=== PATIENT | male | born 1965 | race Caucasian/White ===

== ENCOUNTER → 2020-05-04 09:46 | Outpatient (CLI) | payer OTHER, SELFPAY ==
[2020-05-04] MEDS: COVID-19 VACC #1, MRNA(MOD) 100 MCG/0.5 ML VIAL IM (09:55)
== END ==
PROVIDERS: PCP Family Medicine; Visit Provider Internal Medicine
DX: Z23 Encounter for immunization (principal)
CPT/HCPCS: 0011A; 91301

== ENCOUNTER → 2020-06-22 09:41 | Outpatient (CLI) | payer OTHER, SELFPAY ==
[2020-06-22] MEDS: COVID-19 VACC #2, MRNA(MOD) 100 MCG/0.5 ML VIAL IM (09:48)
== END ==
PROVIDERS: PCP Family Medicine; Visit Provider Internal Medicine
DX: Z23 Encounter for immunization (principal)
CPT/HCPCS: 0012A; 91301

== ENCOUNTER 2020-09-13 19:03 | Emergency (ER) | payer OTHER, SELFPAY ==
[2020-09-13 19:16] VITALS: BP 128/82; PULSE 66; RESP 18; TEMP 36.6; O2SAT 99; BMI 27.4
--- NOTE | 2020-09-13 19:21 | DI.CT.S_ITS ---
PROCEDURE: CT HEAD/BRAIN WO CON INDICATIONS: head injury TECHNIQUE: Noncontrast 4.5 mm thick angled axial sections acquired from the foramen magnum to the vertex, with coronal and sagittal reformats. For radiation dose reduction, the following was used: automated exposure control, adjustment of mA and/or kV according to patient size. COMPARISON: [facility], CT, HEAD WITHOUT CONTRAST, 12/02/2016, 16:55. FINDINGS: Image quality: Excellent. CSF spaces: Basal cisterns are patent. No extra-axial fluid collections. Ventricles are normal in size and shape. Brain: Encephalomalacia in the left frontal lobe is unchanged compared to the prior CT in 2017. No midline shift. No intracranial masses or hemorrhage. Giles-white matter interface is normal. Skull and face: A left frontal craniotomy defect is present. Calvarium and visualized facial bones are intact, without suspicious lesions. Sinuses: Visualized sinuses and mastoids are clear. IMPRESSION: 1. No acute intracranial abnormality. 2. Postoperative changes of the left frontal bone with underlying encephalomalacia. Dictated by: Corky Fulton M.D. on 09/13/2020 at 20:20 Approved by: Corky Fulton M.D. on 09/13/2020 at 20:24
--- NOTE | 2020-09-13 23:01 | ED.HEATRA ---
HPI - Head Injury General Chief complaint: Head Injury Stated complaint: HEAD INJURY, ACTING FUNNY PER SPOUSE Time Seen by Provider: 09/13/20 23:00 Source: patient Mode of arrival: Wheelchair Limitations: no limitations History of Present Illness HPI Narrative: Patient sustained head injury 10:00 a.m. this morning when on loading a car. A hydraulic item, flat in shape, fell down and hit the top of his head. No skin injury. No loss of consciousness. Vomited twice today. He states felt very woozy. Not repeating questions. Denies any other injuries. Previous brain surgery as a child. Not on blood thinners. No numbness tingling or weakness. No altered mental status at this time. Injury occurred over 12 hours ago. Related Data Home Medications Medication Instructions Recorded Confirmed hydrochlorothiazide 25 mg tablet 25 mg PO DAILY 09/04/20 09/06/20 lisinopril 10 mg tablet 10 mg PO DAILY 09/04/20 09/06/20 metoprolol succinate 25 mg 25 mg PO DAILY 09/04/20 09/06/20 tablet,extended release 24 hr oxycodone 10 mg tablet 10 mg PO .Q4-6 HRS tab 09/04/20 09/06/20 Previous Rx's Medication Instructions Recorded tamsulosin 0.4 mg capsule (Flomax) 0.4 mg PO QDAY #60 cap 05/15/16 metformin 500 mg tablet 500 mg PO BID #60 tab 08/18/20 ondansetron 4 mg disintegrating 4 mg PO Q8H PRN #10 tab 09/13/20 tablet Allergies Allergy/AdvReac Type Severity Reaction Status Date / Time No Known Drug Allergies Allergy Verified 09/13/20 19:21 Review of Systems Review of Systems Narrative: GENERAL: Denies chills, fatigue, malaise, fever, sweats. HEENT: Denies sinus pain, ear pain, sore throat RESPIRATORY: Denies dyspnea, cough CARDIOVASCULAR: Denies chest pain, palpitations GASTROINTESTINAL: Complaint nausea, vomiting, denies abdominal pain : Denies dysuria, frequency, hematuria MUSCULOSKELETAL: Complains muscle or bony pain SKIN: Denies rash, skin lesions NEUROLOGIC: Denies weakness, numbness, not repeating questions, no altered mental status ROS Unobtainable: All systems reviewed & are unremarkable except as noted in HPI and below Patient History Medical History Personal history of urinary calculi Social History Smoking Status: Never smoker Smoking Status: Never smoker alcohol intake frequency: 0-2 drinks per day Substance Use Type: does not use Exam Narrative Exam Narrative: GENERAL: in no distress, not toxic not dyspneic HEAD: Normocephalic. Mild tenderness to the top of the scalp. No skin injury seen. No swelling or bruising. Skin is intact. No crepitus or step-off. EYES: Pupils equal round No scleral icterus. No injection no discharge ENT: Mucous membranes moist. NECK: Trachea midline. No midline tenderness or step-off. CARDIOVASCULAR: Regular rate and rhythm without murmurs RESPIRATORY: Clear to auscultation. Breath sounds equal bilaterally. No wheezes, rales, or rhonchi. GASTROINTESTINAL: Abdomen soft, non-tender EXTREMITIES: No gross deformities. BACK: No flank tenderness. NEURO: AOx4. States self gait no facial droop. No ataxia. 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 Clear speech. SKIN: Warm and dry PSYCH: Not anxious, is cooperative Initial Vital Signs Initial Vital Signs: Vital Signs Temperature 97.9 F 09/13/20 19:16 Pulse Rate 66 09/13/20 19:16 Respiratory Rate 18 09/13/20 19:16 Blood Pressure 128/82 09/13/20 19:16 Pulse Oximetry 99 09/13/20 19:16 Course Course Course Narrative: No new issues during course of stay. Orders Ordered: Discontinued Medications Hydrocodone Bitart/Acetaminophen (Hydrocodone/Acet 5/325 Tablet) 1 tab PO NOW ONE Stop: 09/13/20 23:08 Last Admin: 09/13/20 23:28 Dose: 1 tab Documented by: NICK Ondansetron HCl (Ondansetron 4 Mg Odt) 4 mg SL NOW ONE Stop: 09/13/20 23:08 Last Admin: 09/13/20 23:28 Dose: 4 mg Documented by: NICK Ondansetron HCl (Ondansetron 4 Mg Odt Prepack) 1 bottle MISC SEEINSTR ONE Stop: 09/13/20 23:13 Last Admin: 09/13/20 23:28 Dose: 1 bottle Documented by: NICK Reevaluation(s) Reevaluation #1: Reviewed results with patient. Agrees with treatment plan. is driving. Time: 23:15 Vital Signs Vital signs: Vital Signs - 8 hr 09/13/20 19:16 Temperature 97.9 F Pulse Rate 66 Respiratory Rate 18 Blood Pressure 128/82 Pulse Oximetry 99 MDM - Head Injury Differential Diagnosis Differential diagnosis: Likely concussion without loss of consciousness, closed head injury, postconcussion syndrome and concussion with loss of consciousness Imaging Data CT scan - head: Radiologist's Impression: [address] [id number] Scan ReportSigned Patient: Lui Juan JMR#: [id number]: 1965Acct:[id number]/Sex: 54 / MDate of Service: 09/13/20Loc: EDAccession Number: [id number] Procedure: CT head/brain wo con Ordering Provider: Jared Tejada MD PROCEDURE: CT HEAD/BRAIN WO CON INDICATIONS: head injury TECHNIQUE: Noncontrast 4.5 mm thick angled axial sections acquired from the foramen magnum to the vertex, with coronal and sagittal reformats. For radiation dose reduction, the following was used: automated exposure control, adjustment of mA and/or kV according to patient size. COMPARISON: [facility], CT, HEAD WITHOUT CONTRAST, 12/02/2016, 16:55. FINDINGS: Image quality: Excellent. CSF spaces: Basal cisterns are patent. No extra-axial fluid collections. Ventricles are normal in size and shape. Brain: Encephalomalacia in the left frontal lobe is unchanged compared to the prior CT in 2017. No midline shift. No intracranial masses or hemorrhage. Giles-white matter interface is normal. Skull and face: A left frontal craniotomy defect is present. Calvarium and visualized facial bones are intact, without suspicious lesions. Sinuses: Visualized sinuses and mastoids are clear. IMPRESSION: 1. No acute intracranial abnormality. 2. Postoperative changes of the left frontal bone with underlying encephalomalacia. Dictated by: Corky Fulton M.D. on 09/13/2020 at 20:20 Approved by: Corky Fulton M.D. on 09/13/2020 at 20:24 [facility] Narrative Medical decision making narrative: Appropriate for discharge home. Exam and imaging reassuring. Return precautions reviewed patient. Not toxic at discharge Discharge Plan Departure Patient Disposition: Home Clinical Impression: Concussion Qualifiers: Encounter type: initial encounter Loss of consciousness presence/duration: without LOC Qualified Code(s): S06.0X0A - Concussion without loss of consciousness, initial encounter Contusion of head Qualifiers: Encounter type: initial encounter Contusion of head detail: scalp Qualified Code(s): S00.03XA - Contusion of scalp, initial encounter Instructions: DI for Contusion, DI for Closed Head Injury Activity Restrictions/Additional Instructions: See family doctor in a week for recheck. Return if worse if any questions or concerns. Prescription for nausea has been provided. May continue with ibuprofen or Tylenol for pain. Prescriptions: New ondansetron 4 mg tablet,disintegrating 4 mg PO Q8H PRN (Reason: nausea and vomiting) Qty: 10 RF: 0 No Action tamsulosin [Flomax] 0.4 MG capsule,extended release 24hr 0.4 mg PO QDAY Qty: 60 RF: 9 metformin 500 mg tablet 500 mg PO BID Qty: 60 RF: 0 hydrochlorothiazide 25 mg tablet 25 mg PO DAILY RF: 0 lisinopril 10 mg tablet 10 mg PO DAILY RF: 0 metoprolol succinate 25 mg tablet extended release 24 hr 25 mg PO DAILY RF: 0 oxycodone 10 mg tablet 10 mg PO .Q4-6 HRS RF: 0 Referrals: Cheyenne Cadet PA-C [Primary Care Provider] -
[2020-09-13] MEDS: HYDROCODONE/ACET 5/325 TABLET 1 TAB PO (23:28)
[2020-09-13] MEDS: ONDANSETRON 4 MG ODT PREPACK 1 BOTTLE MISC (23:28)
[2020-09-13] MEDS: ONDANSETRON 4 MG ODT SL (23:28)
[2020-09-13 23:36] VITALS: BP 121/81; PULSE 78; RESP 20; O2SAT 98
== END 2020-09-13 23:37 | disposition home or self-care (01) ==
PROVIDERS: Emergency Provider Emergency Medicine; PCP Physician Assistant
DX: S06.0X0A Concussion without loss of consciousness, initial encounter (principal); S00.03XA Contusion of scalp, initial encounter; R11.10 Vomiting, unspecified; W18.09XA Striking against other object with subsequent fall, initial encounter
CPT/HCPCS: 70450; 99283; 99284

== ENCOUNTER → 2020-09-20 08:03 | Outpatient (CLI) | payer OTHER, SELFPAY ==
[2020-09-20 19:34] LABS: Add Manual Diff / Slide Review NO; Basophils Absolute Auto 100 /uL (0-100); Basophils Percent Auto 0.9 % (0-2); Eosinophils Absolute Auto 200 /uL (0-450); Eosinophils Percent Auto 2.3 % (2-4); Hemoglobin 14.9 g/dL (13.5-17.5); Lymphocytes Absolute Auto 1800 /uL (1100-4500); Lymphocytes Percent Auto 25.2 % (25-40); Mean Corpuscular HGB Conc 32.5 % (30-36); Mean Corpuscular Hemoglobin 28.9 PG (26-34); Mean Corpuscular Volume 89.1 fL (80-100); Monocytes Absolute Auto 600 /uL (0-900); Monocytes Percent Auto 7.8 % (3-14); Neutrophils Absolute Auto 4700 /uL (1500-7000); Neutrophils Percent Auto 63.8 % (50-75); Platelet Count 269 X10^3/uL (150-400); Red Blood Cell Count 5.16 X10^6/uL (4.5-5.9); White Blood Cell Count 7.3 X10^3/uL (4.5-11.0)
[2020-09-20 19:53] LABS: Hemoglobin A1C% w Est Avg Glu 6.7 % (4.0-6.0)
[2020-09-20 20:13] LABS: Alanine Aminotransferase 21 IU/L (<50); Albumin Globulin Ratio 1.5 (1.0-2.8); Alkaline Phosphatase 51 U/L (38-126); Aspartate Aminotransferase 29 IU/L (17-59); BUN Creatinine Ratio 21.8 (6-22); Bilirubin Total 0.8 mg/dL (0.2-1.3); Blood Urea Nitrogen 19 mg/dL (9-20); Calcium 9.9 mg/dL (8.4-10.2); Carbon Dioxide 25 mmol/L (22-32); Chloride 103 mmol/L (98-107); Cholesterol 178 mg/dL (140-199); Estimated Glomerular Filt Rate > 60.0 mL/min (>60); Globulin 2.7 g/dL (1.7-4.1); Glucose 170 mg/dL (70-100); HDL Cholesterol 66 mg/dL (40-60); HEMOLYSIS < 15 (0-50); LDL Cholesterol Calculated 97 mg/dL (<100); Potassium 4.3 mmol/L (3.4-5.1); Sodium 136 mmol/L (137-145); Total Protein 6.7 g/dL (6.3-8.2); Triglycerides 74 mg/dL (35-150)
[2020-09-20 20:36] LABS: Prostate Specific Antigen Scrn 0.472 ng/mL (0.1-4.0); TSH w/ Reflex to FT4 0.72 uIU/mL (0.47-4.68)
== END ==
PROVIDERS: PCP Physician Assistant; Referring Provider Physician Assistant; Visit Provider Physician Assistant
DX: E11.9 Type 2 diabetes mellitus without complications (principal); R03.0 Elevated blood-pressure reading, without diagnosis of hypertension; R73.9 Hyperglycemia, unspecified; Z13.220 Encounter for screening for lipoid disorders; Z87.442 Personal history of urinary calculi; Z87.448 Personal history of other diseases of urinary system; Z12.5 Encounter for screening for malignant neoplasm of prostate
CPT/HCPCS: 80053; 80061; 83036; 84443; 85025; G0103

== ENCOUNTER → 2021-05-21 08:04 | Outpatient (CLI) | payer OTHER, SELFPAY ==
[2021-05-21 19:35] LABS: Add Manual Diff / Slide Review NO; Basophils Absolute Auto 0 /uL (0-100); Basophils Percent Auto 0.6 % (0-2); Eosinophils Absolute Auto 100 /uL (0-450); Eosinophils Percent Auto 2.3 % (2-4); Hematocrit 44.8 % (41-53); Hemoglobin 14.7 g/dL (13.5-17.5); Lymphocytes Absolute Auto 1700 /uL (1100-4500); Mean Corpuscular HGB Conc 32.9 % (30-36); Mean Corpuscular Hemoglobin 29.1 PG (26-34); Mean Corpuscular Volume 88.3 fL (80-100); Monocytes Absolute Auto 400 /uL (0-900); Monocytes Percent Auto 9.2 % (3-14); Neutrophils Absolute Auto 2600 /uL (1500-7000); Neutrophils Percent Auto 52.9 % (50-75); Platelet Count 262 X10^3/uL (150-400); Red Blood Cell Count 5.07 X10^6/uL (4.5-5.9); Red Cell Distribution Width 13.7 % (11.6-14.8); White Blood Cell Count 4.8 X10^3/uL (4.5-11.0)
[2021-05-21 19:58] LABS: Alanine Aminotransferase 24 IU/L (<50); Albumin 4.1 g/dL (3.5-5.0); Albumin Globulin Ratio 1.4 (1.0-2.8); Alkaline Phosphatase 45 U/L (38-126); Aspartate Aminotransferase 27 IU/L (17-59); BUN Creatinine Ratio 20.2 (6-22); Bilirubin Total 1.3 mg/dL (0.2-1.3); Blood Urea Nitrogen 17 mg/dL (9-20); Calcium 8.9 mg/dL (8.4-10.2); Carbon Dioxide 27 mmol/L (22-32); Chloride 104 mmol/L (98-107); Cholesterol 191 mg/dL (140-199); Estimated Glomerular Filt Rate > 60.0 mL/min (>60); Globulin 2.9 g/dL (1.7-4.1); Glucose 166 mg/dL (70-100); HDL Cholesterol 53 mg/dL (40-60); HEMOLYSIS < 15 (0-50); LDL Cholesterol Calculated 113 mg/dL (<100); Sodium 139 mmol/L (137-145); Triglycerides 123 mg/dL (35-150)
[2021-05-21 20:06] LABS: Hemoglobin A1C% w Est Avg Glu 7.1 % (4.0-6.0)
== END ==
PROVIDERS: PCP Physician Assistant; Visit Provider Physician Assistant
DX: Z87.442 Personal history of urinary calculi (principal); Z13.220 Encounter for screening for lipoid disorders; E11.9 Type 2 diabetes mellitus without complications; I10 Essential (primary) hypertension
CPT/HCPCS: 80053; 80061; 83036; 85025

== ENCOUNTER → 2021-06-28 13:40 | Outpatient (CLI) | payer OTHER, SELFPAY ==
[2021-06-28 18:49] LABS: Add Manual Diff / Slide Review NO; Basophils Absolute Auto 100 /uL (0-100); Basophils Percent Auto 0.9 % (0-2); Eosinophils Absolute Auto 200 /uL (0-450); Hemoglobin 14.8 g/dL (13.5-17.5); Lymphocytes Absolute Auto 2000 /uL (1100-4500); Lymphocytes Percent Auto 29.9 % (25-40); Mean Corpuscular HGB Conc 34.3 % (30-36); Mean Corpuscular Hemoglobin 29.5 PG (26-34); Monocytes Absolute Auto 600 /uL (0-900); Monocytes Percent Auto 8.6 % (3-14); Neutrophils Absolute Auto 3800 /uL (1500-7000); Neutrophils Percent Auto 57.6 % (50-75); Platelet Count 306 X10^3/uL (150-400); Red Cell Distribution Width 13.1 % (11.6-14.8); White Blood Cell Count 6.7 X10^3/uL (4.5-11.0)
[2021-06-28 18:52] LABS: D Dimer < 200 ng/mL (<230)
[2021-06-28 18:55] LABS: Alanine Aminotransferase 21 IU/L (<50); Albumin 4.3 g/dL (3.5-5.0); Albumin Globulin Ratio 1.5 (1.0-2.8); Alkaline Phosphatase 48 U/L (38-126); Aspartate Aminotransferase 25 IU/L (17-59); BUN Creatinine Ratio 29.1 (6-22); Blood Urea Nitrogen 23 mg/dL (9-20); Calcium 9.5 mg/dL (8.4-10.2); Carbon Dioxide 27 mmol/L (22-32); Chloride 99 mmol/L (98-107); Estimated Glomerular Filt Rate > 60 mL/min (>60); Globulin 2.9 g/dL (1.7-4.1); Glucose 113 mg/dL (70-100); HEMOLYSIS < 15 (0-50); Potassium 4.2 mmol/L (3.4-5.1); Sodium 136 mmol/L (137-145); Total Protein 7.2 g/dL (6.3-8.2)
[2021-06-28 19:11] LABS: Vitamin D 25 Hydroxy (D3) 36.3 ng/mL (30.0-100.0)
== END ==
PROVIDERS: PCP Physician Assistant; Visit Provider Physician Assistant
DX: R73.9 Hyperglycemia, unspecified (principal); U09.9 Post COVID-19 condition, unspecified; R53.83 Other fatigue
CPT/HCPCS: 80053; 82306; 85025; 85379

== ENCOUNTER → 2021-12-17 10:24 | Outpatient (CLI) | payer OTHER, SELFPAY ==
[2021-12-17 19:21] LABS: Alanine Aminotransferase 25 IU/L (<50); Albumin 4.1 g/dL (3.5-5.0); Albumin Globulin Ratio 1.3 (1.0-2.8); Alkaline Phosphatase 46 U/L (38-126); Aspartate Aminotransferase 27 IU/L (17-59); BUN Creatinine Ratio 24.1 (6-22); Bilirubin Total 1.2 mg/dL (0.2-1.3); Blood Urea Nitrogen 19 mg/dL (9-20); Carbon Dioxide 28 mmol/L (22-32); Chloride 101 mmol/L (98-107); Estimated Glomerular Filt Rate > 60 mL/min (>60); Globulin 3.1 g/dL (1.7-4.1); Glucose 150 mg/dL (70-100); HEMOLYSIS 34 (0-50); Potassium 4.3 mmol/L (3.4-5.1); Sodium 136 mmol/L (137-145); Total Protein 7.2 g/dL (6.3-8.2)
[2021-12-17 19:27] LABS: Hemoglobin A1C% w Est Avg Glu 6.6 % (4.0-6.0)
== END ==
PROVIDERS: PCP Physician Assistant; Visit Provider Physician Assistant
DX: E11.9 Type 2 diabetes mellitus without complications (principal); E78.00 Pure hypercholesterolemia, unspecified; I10 Essential (primary) hypertension; R73.9 Hyperglycemia, unspecified
CPT/HCPCS: 80053; 83036

== ENCOUNTER 2022-05-08 21:08 | Emergency (ER) | payer OTHER, SELFPAY ==
--- NOTE | 2022-05-08 21:04 | DI.CT.S_ITS ---
PROCEDURE: CT KIDNEY URETER BLADDER (KUB) INDICATIONS: flank pain, radiation around side, hx stones TECHNIQUE: Axial sections were acquired from the lung bases to the pubic symphysis. Coronal and sagittal reformats were performed. For radiation dose reduction, the following was used: automated exposure control, adjustment of mA and/or kV according to patient size. COMPARISON: [facility], CT, KIDNEY/ URETER/BLADDER, 07/18/2016, 14:51. FINDINGS: Image quality: Excellent. Lung bases: There is minimal atelectasis. Heart: Heart is normal in size. URINARY: Right Kidney and Ureter: There are 3 small nonobstructing right renal stones, with the largest measuring up to approximately 0.4 cm. No hydronephrosis. No hydroureter. Left Kidney and Ureter: There is an obstructing urinary stone in the distal left ureter measuring up to 0.5 cm with attenuation values of approximately 600-700 Hounsfield units. There is associated moderate left hydroureteronephrosis with perinephric and periureteral fat stranding. There are 2 additional nonobstructing left renal stones measuring up to 0.2 cm. Bladder: Normal wall thickness. No stones. ABDOMEN: Liver: Noncontrast evaluation of the liver demonstrates no discrete mass. Gallbladder: Surgically absent. Biliary ducts: There is mild biliary ductal dilatation redemonstrated which may reflect sequelae of prior cholecystectomy. Pancreas: Unremarkable. Spleen: Normal in size. Adrenal Glands: No adrenal nodules. Stomach and Bowel: Stomach, small bowel loops, and colon are normal in caliber and wall thickness. No pericecal inflammatory changes to suggest appendicitis. Peritoneum: No abnormal intraperitoneal fluid. No free air. Ventral Wall: No hernia. Abdominal Nodes: No retroperitoneal or mesenteric adenopathy by size criteria. Vessels: Aorta and inferior vena cava are normal in size. PELVIS: Pelvic Organs: Unremarkable. Pelvic Nodes: No enlarged lymph nodes. Miscellaneous: There is a small fat-containing right inguinal hernia. Bones: Visualized osseous structures demonstrate no suspicious focal lesions. IMPRESSION: 1. Obstructing distal left ureteral stone with moderate left hydroureteronephrosis. 2. Additional bilateral small nonobstructing renal stones as described. Dictated by: Socrates Celeste M.D. on 05/08/2022 at 22:34 Approved by: Socrates Celeste M.D. on 05/08/2022 at 22:38
--- NOTE | 2022-05-08 21:10 | ED_ITS ---
HPI - General Adult General Chief complaint: Back Pain/Injury Stated complaint: Stone Time Seen by Provider: 05/08/22 21:10 History of Present Illness HPI narrative: 56-year-old male nonsmoker with history of diabetes, hypertension and multiple prior kidney stones presents by air medical transport for evaluation of left flank pain that started at about 17 30 tonight. He states it feels quite similar to prior kidney stones and is very sharp and stabbing in nature and radiates around his left side. There is no obvious provocation or palliation. He has been nauseated but denies any vomiting. He denies fever or chills. He denies any obvious urinary complaints otherwise such as dysuria, frequency or urgency. Related Data Previous Rx's Medication Instructions Recorded hydrochlorothiazide 25 mg tablet See Rx Instructions .Route 12/17/21 .COMPLEX #30 tabs lisinopril 10 mg tablet See Rx Instructions .Route 12/17/21 .COMPLEX #30 tabs metformin 500 mg tablet See Rx Instructions .Route 12/17/21 .COMPLEX #90 tabs metoprolol succinate 25 mg See Rx Instructions .Route 12/17/21 tablet,extended release 24 hr .COMPLEX #30 tabs tamsulosin 0.4 mg capsule 0.8 mg PO BEDTIME #60 caps 12/17/21 oxycodone 10 mg tablet See Rx Instructions PO BID PRN 02/23/22 pain #28 tabs ketorolac 10 mg tablet 10 mg PO Q6H PRN pain #14 tabs 05/09/22 ondansetron 4 mg disintegrating 4 mg PO TID-QID PRN nausea and 05/09/22 tablet vomiting #10 tabs oxycodone 5 mg tablet 5 mg PO Q4-6H PRN pain #10 tabs 05/09/22 tamsulosin 0.4 mg capsule (Flomax) 0.4 mg PO DAILY #30 caps 05/09/22 Allergies Allergy/AdvReac Type Severity Reaction Status Date / Time No Known Drug Allergies Allergy Verified 05/08/22 21:12 Review of Systems Review of Systems Narrative: GENERAL: Denies chills, fatigue, malaise, fever, sweats. HEENT: Denies sinus pain, ear pain, sore throat, difficulty swallowing, dizziness. RESPIRATORY: Denies dyspnea, cough, wheezing, hemoptysis, sputum. CARDIOVASCULAR: Denies chest pain, palpitations, orthopnea, edema, GASTROINTESTINAL: See HPI : See HPI MUSCULOSKELETAL: denies weakness, joint pain, or bony pain SKIN: Denies rash, skin lesions, or other NEUROLOGIC: Denies weakness, headache, numbness, change in speech, confusion, seizures, incoordination. PSYCHIATRIC: No concerning psychosocial issues. 12 point review of systems is negative except for those stated above Patient History Social History Smoking Status: Never smoker Smoking Status: Never smoker alcohol intake frequency: 0-2 drinks per day Substance Use Type: does not use Exam Narrative Exam Narrative: GENERAL: [56] year old patient appears stated age. Well-developed patient, in obvious pain HEAD: Atraumatic. Normocephalic. EYES: Pupils equal round and reactive. Extraocular motions intact. No scleral icterus. No injection or drainage. ENT: Nose without bleeding, purulent drainage. Throat without erythema, tonsillar hypertrophy or exudate. Airway patent. NECK: Trachea midline. Non tender CARDIOVASCULAR: Regular rate and rhythm without murmurs, gallops, or rubs. RESPIRATORY: Clear to auscultation. Breath sounds equal bilaterally. No wheezes, rales, or rhonchi. GASTROINTESTINAL: Abdomen soft, non-tender, nondistended. EXTREMITIES: No edema or joint tenderness. BACK: Nontender without deformity or crepitance. No flank tenderness. NEURO: AOx3. SKIN: No rash or erythema of visible areas Initial Vital Signs Initial Vital Signs: Vital Signs Pulse Rate 108 H 05/08/22 21:12 Respiratory Rate 24 05/08/22 21:12 Blood Pressure 191/109 H 05/08/22 21:12 Pulse Oximetry 97 05/08/22 21:12 Oxygen Delivery Method Room Air 05/08/22 21:12 Course Course Course Narrative: Patient with brief improvement after Toradol, pain started coming back and Lidoderm drip was ordered which provided little to no relief. This is followed by Dilaudid, patient still writhing in pain Orders Ordered: ED Orders 05/09/22 00:50 Urine Culture Stat Urine Microscopic Stat Discontinued Medications Hydromorphone HCl (Hydromorphone 1 Mg Inj) 1 mg IV NOW ONE Stop: 05/09/22 00:40 Last Admin: 05/09/22 00:48 Dose: 1 mg Documented By: MANOHAR Sodium Chloride (Normal Saline 0.9%) 1,000 mls @ 1,000 mls/hr IV BOLUS ONE Stop: 05/08/22 22:02 Last Infusion: 05/08/22 23:00 Dose: 0 mls/hr Documented By: Admin: 05/08/22 21:44 Dose: 1,000 mls/hr Documented By: MANOHAR Lidocaine HCl 6 ml/ Sodium (Chloride) 56 mls @ 336 mls/hr IV NOW ONE Stop: 05/08/22 23:57 Last Infusion: 05/09/22 00:27 Dose: 0 mls/hr Documented By: Admin: 05/09/22 00:02 Dose: 336 mls/hr Documented By: MANOHAR Ketorolac Tromethamine (Ketorolac 30 Mg/Ml Vial) 15 mg IV NOW ONE Stop: 05/08/22 21:04 Last Admin: 05/08/22 21:43 Dose: 15 mg Documented By: MANOHAR Morphine Sulfate (Morphine 4 Mg/Ml Inj) 8 mg 0.1 mg/kg (8 mg) IV NOW ONE Stop: 05/09/22 02:54 Last Admin: 05/09/22 03:00 Dose: 8 mg Documented By: MANOHAR Ondansetron HCl (Ondansetron 4 Mg/2 Ml Inj) 4 mg IV NOW ONE Stop: 05/08/22 21:04 Ondansetron HCl (Ondansetron 4 Mg Odt Prepack) 1 bottle MISC SEEINSTR ONE Stop: 05/09/22 06:12 Oxycodone/Acetaminophen (Oxycodone/Apap 5/325 Prepack) 1 bottle MISC SEEINSTR ONE Stop: 05/09/22 06:12 Tamsulosin HCl (Tamsulosin 0.4 Mg Capsule) 0.4 mg PO NOW ONE Stop: 05/09/22 02:41 Last Admin: 05/09/22 02:50 Dose: 0.4 mg Documented By: MANOHAR Vital Signs Vital signs: Vital Signs - 8 hr 05/08/22 23:00 05/08/22 23:00 05/08/22 23:30 Pulse Rate 72 89 Blood Pressure 127/87 Pulse Oximetry 95 100 05/08/22 23:31 05/08/22 23:31 05/09/22 00:00 Pulse Rate 91 H Blood Pressure 168/102 H 132/88 Pulse Oximetry 100 05/09/22 00:00 05/09/22 00:30 05/09/22 01:00 Pulse Rate 86 88 95 H Blood Pressure Pulse Oximetry 97 96 97 05/09/22 01:30 05/09/22 02:00 05/09/22 02:30 Pulse Rate 79 78 75 Blood Pressure Pulse Oximetry 96 96 97 05/09/22 03:00 05/09/22 03:26 05/09/22 03:26 Pulse Rate 80 80 Blood Pressure 123/73 Pulse Oximetry 97 92 05/09/22 03:30 05/09/22 03:30 Pulse Rate 76 Blood Pressure 115/74 Pulse Oximetry 94 Medical Decision Making Lab Data 05/08/22 21:40 05/08/22 21:40 Labs: Lab Results 05/08/22 05/08/22 05/09/22 Range/Units 21:40 21:40 00:50 WBC 7.0 (4.5-11.0) X10^3/uL RBC 4.70 (4.5-5.9) X10^6/uL Hgb 14.0 (13.5-17.5) g/dL Hct 41.4 (41-53) % MCV 88.0 (80-100) fL MCH 29.8 (26-34) PG MCHC 33.8 (30-36) % RDW 13.9 (11.6-14.8) % Plt Count 282 (150-400) X10^3/uL Neut % (Auto) 58.9 (50-75) % Lymph % (Auto) 28.6 (25-40) % [place] % (Auto) 9.2 (3-14) % Eos % (Auto) 2.6 (2-4) % Baso % (Auto) 0.7 (0-2) % Neut # (Auto) 4100 (1314-2980) /uL Lymph # (Auto) 2000 (0534-4221) /uL [place] # (Auto) 600 (0-900) /uL Eos # (Auto) 200 (0-450) /uL Baso # (Auto) 0 (0-100) /uL Sodium 139 (137-145) mmol/L Potassium 4.0 (3.4-5.1) mmol/L Chloride 107 (98-107) mmol/L Carbon Dioxide 25 (22-32) mmol/L BUN 26 H (9-20) mg/dL Creatinine 1.04 (0.66-1.25) mg/dL Estimated GFR > 60 (>60) mL/min BUN/Creatinine Ratio 25.0 H (6-22) Glucose 141 H (70-100) mg/dL Calcium 9.4 (8.4-10.2) mg/dL Total Bilirubin 0.9 (0.2-1.3) mg/dL AST 28 (17-59) IU/L ALT 27 (<50) IU/L Alkaline Phosphatase 48 (38-126) U/L Total Protein 7.4 (6.3-8.2) g/dL Albumin 4.4 (3.5-5.0) g/dL Globulin 3.0 (1.7-4.1) g/dL Albumin/Globulin Ratio 1.5 (1.0-2.8) Urine RBC 30-100/hpf H (0-5/HPF) Urine WBC 0-1/hpf (0-5/HPF) Ur Squamous Epith Cells 1-5 /hpf (0-5/HPF) Calcium Oxalate Crystal Moderate H Urine Bacteria Few (2-10) H (None) Urine Dip Bedside Urine Glucose Negative Bedside Urine Bilirubin - Negative Bedside Urine Ketone - Negative Urine Specific [place] 1.030 Bedside Urine Occult Blood ++ Bedside Urine pH 6.0 Bedside Urine Protein - Negative Bedside Urine Urobilinogen - Negative Bedside Urine Nitrite - Negative Bedside Urine Leukocytes - Negative Esterase Point of care testing: Urine Dip Bedside Urine Glucose Negative Bedside Urine Bilirubin - Negative Bedside Urine Ketone - Negative Urine Specific [place] 1.030 Bedside Urine Occult Blood ++ Bedside Urine pH 6.0 Bedside Urine Protein - Negative Bedside Urine Urobilinogen - Negative Bedside Urine Nitrite - Negative Bedside Urine Leukocytes - Negative Esterase Imaging Data CT scan - abdomen/pelvis: My Impression: Obstructing distal left ureteral stone with moderate left hydronephrosis, 0.5 cm MDM Narrative Medical decision making narrative: [56] year old patient presents with left flank pain and history of kidney stones Multiple etiologies for patient's symptoms considered including, but not limited to: [Kidney stone versus musculoskeletal versus other] Prior Charts reviewed in our EMR Primary Historian: patient Labs reviewed and interpreted by myself: No significant abnormal findings that would require specific intervention Imaging reviewed: 5 mm stone in left distal ureter Patient's symptoms improved over duration of stay with above-stated therapies. Pain controlled, tolerating orals, no signs of sepsis or renal failure Findings and discharge diagnosis discussed with patient/family followed by verbalization of understanding Return precautions discussed with patient/family whom verbalize understanding of diagnosis and plan Discharge Plan Departure Patient Disposition: Home Clinical Impression: Kidney stone on left side Instructions: Kidney Stones -- Adult Activity Restrictions/Additional Instructions: *You have been diagnosed with [left-sided kidney stone ] *What to do: *Please continue to take your regular medications as directed. [x ]] New medication prescriptions sent to your pharmacy: [ [facility]] [ ] New medication written as a paper prescription [ ] No new medications given *Please follow up with your primary care provider in 2-3 days, call for an appointment. Let them know you were seen in the Emergency Department and that we ask that you be seen in follow up. We will electronically transmit a record of today's note if your PCP is in our system *If you do not have a primary care provider please contact the [facility] Resource line at [phone]. They will ask some questions about your medical history and help get you set up with a doctor in the community. * as we discussed I have included contact information for our on-call Urology group which includes Dr. Loja and Dr. Quevedo. Please follow-up with them, call the office and let them know you were seen in the emergency department and we would like you seen in follow-up *Return to Emergency Department if you should have any new, worsening or concerning symptoms, such as [fever greater than 101 F, shaking chills, worsening pain, persistent vomiting or other bothersome symptoms] Prescriptions: New ketorolac 10 mg tablet 10 mg PO Q6H PRN (Reason: pain) Qty: 14 0RF tamsulosin [Flomax] 0.4 mg capsule 0.4 mg PO DAILY Qty: 30 0RF ondansetron 4 mg tablet,disintegrating 4 mg PO TID-QID PRN (Reason: nausea and vomiting) Qty: 10 0RF oxycodone 5 mg tablet 5 mg PO Q4-6H PRN (Reason: pain) Qty: 10 0RF No Action oxycodone 10 mg tablet See Rx Instructions PO BID PRN (Reason: pain) Qty: 28 0RF Rx Instructions: take 1-2 only as needed per day for renal colic. Must last 30 days hydrochlorothiazide 25 mg tablet See Rx Instructions .ROUTE .COMPLEX Qty: 30 6RF Dose Instruction: TAKE ONE TABLET BY MOUTH EVERY DAY Rx Instructions: TAKE ONE TABLET BY MOUTH EVERY DAY lisinopril 10 mg tablet See Rx Instructions .ROUTE .COMPLEX Qty: 30 6RF Dose Instruction: TAKE ONE TABLET BY MOUTH EVERY DAY Rx Instructions: TAKE ONE TABLET BY MOUTH EVERY DAY metformin 500 mg tablet See Rx Instructions .ROUTE .COMPLEX Qty: 90 4RF Dose Instruction: TAKE ONE TABLET BY MOUTH TWICE A DAY Rx Instructions: TAKE TWO TABLETs in AM and One tablet in PM. metoprolol succinate 25 mg tablet extended release 24 hr See Rx Instructions .ROUTE .COMPLEX Qty: 30 6RF Dose Instruction: TAKE ONE TABLET BY MOUTH EVERY DAY Rx Instructions: TAKE ONE TABLET BY MOUTH EVERY DAY tamsulosin 0.4 mg capsule 0.8 mg PO BEDTIME Qty: 60 6RF Referrals: Noemy Loja MD [Physician] - Cheyenne Cadet PA-C [Primary Care Provider] - Stand Alone Forms: Patient Portal/API
[2022-05-08 21:12] VITALS: BP 191/109; PULSE 108; RESP 24; O2SAT 97; BMI 29.0
[2022-05-08] MEDS: KETOROLAC 30 MG/ML VIAL 15 MG IV (21:43)
[2022-05-08] MEDS: SODIUM CHLORIDE 0.9% 1,000 ML 1000 ML IV (21:44)
[2022-05-08 21:49] LABS: Add Manual Diff / Slide Review NO; Basophils Absolute Auto 0 /uL (0-100); Basophils Percent Auto 0.7 % (0-2); Eosinophils Absolute Auto 200 /uL (0-450); Eosinophils Percent Auto 2.6 % (2-4); Hematocrit 41.4 % (41-53); Lymphocytes Absolute Auto 2000 /uL (1100-4500); Lymphocytes Percent Auto 28.6 % (25-40); Mean Corpuscular HGB Conc 33.8 % (30-36); Mean Corpuscular Hemoglobin 29.8 PG (26-34); Monocytes Absolute Auto 600 /uL (0-900); Monocytes Percent Auto 9.2 % (3-14); Neutrophils Absolute Auto 4100 /uL (1500-7000); Neutrophils Percent Auto 58.9 % (50-75); Platelet Count 282 X10^3/uL (150-400); Red Cell Distribution Width 13.9 % (11.6-14.8)
[2022-05-08 22:06] LABS: Alanine Aminotransferase 27 IU/L (<50); Albumin 4.4 g/dL (3.5-5.0); Albumin Globulin Ratio 1.5 (1.0-2.8); Alkaline Phosphatase 48 U/L (38-126); Aspartate Aminotransferase 28 IU/L (17-59); Bilirubin Total 0.9 mg/dL (0.2-1.3); Blood Urea Nitrogen 26 mg/dL (9-20); Calcium 9.4 mg/dL (8.4-10.2); Carbon Dioxide 25 mmol/L (22-32); Chloride 107 mmol/L (98-107); Estimated Glomerular Filt Rate > 60 mL/min (>60); Glucose 141 mg/dL (70-100); HEMOLYSIS < 15 (0-50); Sodium 139 mmol/L (137-145); Total Protein 7.4 g/dL (6.3-8.2)
[2022-05-08 22:28] VITALS: PULSE 78; O2SAT 95
[2022-05-08 22:30] VITALS: BP 119/88; PULSE 74; O2SAT 96
[2022-05-08 23:00] VITALS: BP 127/87; PULSE 72; O2SAT 95
[2022-05-08 23:30] VITALS: PULSE 89; O2SAT 100
[2022-05-08 23:31] VITALS: BP 168/102; PULSE 91; O2SAT 100
[2022-05-09] VITALS (10 sets, daily range): BP systolic 115–146; BP diastolic 73–88; PULSE 75–95; O2SAT 92–100
[2022-05-09] MEDS: LIDOCAINE 2% (PF) 6 ML in SODIUM CHLORIDE 0.9% 50 ML 336 ML IV (00:02)
[2022-05-09] MEDS: HYDROMORPHONE 1 MG INJ IV (00:48)
[2022-05-09 02:25] LABS: Bacteria Urine Few (2-10); Calcium Oxalate Crystals Urine Moderate; RBC Urine 30-100/HPF (0-5/HPF); Squamous Epithelial Cell Urine 1-5 /HPF (0-5/HPF); WBC Urine 0-1/HPF (0-5/HPF)
[2022-05-09] MEDS: TAMSULOSIN 0.4 MG CAPSULE PO (02:50)
[2022-05-09] MEDS: MORPHINE 4 MG/ML INJ 8 MG IV (03:00)
[2022-05-09] MEDS: ONDANSETRON 4 MG ODT PREPACK 1 BOTTLE MISC (06:49)
[2022-05-09] MEDS: OXYCODONE/APAP 5/325 PREPACK 1 BOTTLE MISC (06:49)
== END 2022-05-09 06:57 | disposition home or self-care (01) ==
PROVIDERS: Emergency Provider Emergency Medicine; PCP Physician Assistant
DX: N20.0 Calculus of kidney (principal)
CPT/HCPCS: 36415; 74176; 80053; 81003; 81015; 85025; 87086; 96361; 96365; 96375; 99284; J1170; J1885; J2270

== ENCOUNTER → 2022-06-12 14:56 | Outpatient (CLI) | payer OTHER, SELFPAY ==
[2022-06-18 21:40] LABS: Ca oxalate dihydrate 20 % (.); Ca oxalate monohydr 80 % (.); Size 4x4 mm (.)
== END ==
PROVIDERS: PCP Physician Assistant; Visit Provider Physician Assistant
DX: N20.0 Calculus of kidney (principal)
CPT/HCPCS: 82365

== ENCOUNTER → 2022-10-14 10:19 | Outpatient (CLI) | payer OTHER, SELFPAY ==
[2022-10-14 20:00] LABS: Add Manual Diff / Slide Review NO; Basophils Absolute Auto 100 /uL (0-100); Basophils Percent Auto 1.3 % (0-2); Eosinophils Absolute Auto 100 /uL (0-450); Eosinophils Percent Auto 2.4 % (2-4); Hematocrit 41.6 % (41-53); Hemoglobin 14.3 g/dL (13.5-17.5); Lymphocytes Absolute Auto 1400 /uL (1100-4500); Lymphocytes Percent Auto 26.1 % (25-40); Mean Corpuscular HGB Conc 34.3 % (30-36); Mean Corpuscular Hemoglobin 30.6 PG (26-34); Monocytes Absolute Auto 500 /uL (0-900); Monocytes Percent Auto 8.4 % (3-14); Neutrophils Absolute Auto 3400 /uL (1500-7000); Neutrophils Percent Auto 61.8 % (50-75); Platelet Count 253 X10^3/uL (150-400); Red Blood Cell Count 4.68 X10^6/uL (4.5-5.9); Red Cell Distribution Width 13.6 % (11.6-14.8); White Blood Cell Count 5.4 X10^3/uL (4.5-11.0)
[2022-10-14 20:09] LABS: Alanine Aminotransferase 19 IU/L (<50); Albumin Globulin Ratio 1.5 (1.0-2.8); Alkaline Phosphatase 36 U/L (38-126); Aspartate Aminotransferase 25 IU/L (17-59); Blood Urea Nitrogen 15 mg/dL (9-20); Calcium 9.2 mg/dL (8.4-10.2); Carbon Dioxide 25 mmol/L (22-32); Chloride 103 mmol/L (98-107); Cholesterol 185 mg/dL (140-199); Estimated Glomerular Filt Rate > 60 mL/min (>60); Globulin 2.7 g/dL (1.7-4.1); Glucose 208 mg/dL (70-100); HDL Cholesterol 60 mg/dL (40-60); HEMOLYSIS 51 (0-50); LDL Cholesterol Calculated 104 mg/dL (<100); Potassium 4.7 mmol/L (3.4-5.1); Sodium 135 mmol/L (137-145); Total Protein 6.7 g/dL (6.3-8.2); Triglycerides 104 mg/dL (35-150); Uric Acid 4.8 mg/dL (3.5-8.5)
[2022-10-14 23:37] LABS: Hemoglobin A1C% w Est Avg Glu 8.2 % (4.0-6.0)
== END ==
PROVIDERS: PCP Physician Assistant; Visit Provider Physician Assistant
DX: E78.00 Pure hypercholesterolemia, unspecified (principal); R73.9 Hyperglycemia, unspecified; E11.9 Type 2 diabetes mellitus without complications; R03.0 Elevated blood-pressure reading, without diagnosis of hypertension; Z87.442 Personal history of urinary calculi; R31.9 Hematuria, unspecified
CPT/HCPCS: 80053; 80061; 83036; 84550; 85025

== ENCOUNTER 2022-11-20 14:59 | Emergency (ER) | payer OTHER, SELFPAY ==
[2022-11-20 15:01] VITALS: BP 159/87; PULSE 99; RESP 18; TEMP 37.1; O2SAT 99; BMI 29.0
[2022-11-20 15:44] LABS: Add Manual Diff / Slide Review NO; Basophils Absolute Auto 100 /uL (0-100); Eosinophils Absolute Auto 200 /uL (0-450); Hemoglobin 14.6 g/dL (13.5-17.5); Lymphocytes Absolute Auto 2000 /uL (1100-4500); Lymphocytes Percent Auto 24.7 % (25-40); Mean Corpuscular HGB Conc 33.9 % (30-36); Mean Corpuscular Hemoglobin 30.2 PG (26-34); Mean Corpuscular Volume 88.9 fL (80-100); Monocytes Absolute Auto 600 /uL (0-900); Monocytes Percent Auto 7.5 % (3-14); Neutrophils Absolute Auto 5200 /uL (1500-7000); Neutrophils Percent Auto 64.8 % (50-75); Platelet Count 301 X10^3/uL (150-400); Red Blood Cell Count 4.84 X10^6/uL (4.5-5.9); Red Cell Distribution Width 13.5 % (11.6-14.8); White Blood Cell Count 7.9 X10^3/uL (4.5-11.0)
[2022-11-20 16:01] LABS: Alanine Aminotransferase 19 IU/L (<50); Albumin 4.3 g/dL (3.5-5.0); Albumin Globulin Ratio 1.4 (1.0-2.8); Alkaline Phosphatase 48 U/L (38-126); Aspartate Aminotransferase 23 IU/L (17-59); BUN Creatinine Ratio 23.1 (6-22); Bilirubin Total 0.9 mg/dL (0.2-1.3); Blood Urea Nitrogen 18 mg/dL (9-20); Calcium 9.7 mg/dL (8.4-10.2); Carbon Dioxide 25 mmol/L (22-32); Chloride 105 mmol/L (98-107); Estimated Glomerular Filt Rate > 60 mL/min (>60); Glucose 132 mg/dL (70-100); HEMOLYSIS 23 (0-50); Lipase 86 U/L (23-300); Sodium 138 mmol/L (137-145); Total Protein 7.3 g/dL (6.3-8.2)
[2022-11-20] MEDS: ONDANSETRON 4 MG/2 ML INJ IV (16:01)
[2022-11-20] MEDS: HYDROMORPHONE 1 MG INJ IV ×2 (16:01→16:33)
[2022-11-20] MEDS: SODIUM CHLORIDE 0.9% 1,000 ML 1000 ML IV (16:01)
--- NOTE | 2022-11-20 16:03 | PC.NURSE ---
Left flank pain, pacing in room, moaning.
--- NOTE | 2022-11-20 16:50 | DI.US.S_ITS ---
PROCEDURE: US RENAL COMPLETE INDICATIONS: LEFT FLANK PAIN TECHNIQUE: Real-time scanning was performed of the kidneys and bladder, with image documentation. COMPARISON: [facility], CT, CT KIDNEY URETER BLADDER (KUB), 05/08/2022, 21:08. FINDINGS: Kidneys: Kidneys are normal in size. Right kidney measures 10.0 cm long; left kidney measures 11.5 cm long. Right renal cortical thickness is 2.0 cm; left renal cortical thickness is 1.8 cm. Renal cortical echotexture is normal. Multiple bilateral renal calculi, the largest is located on the right and measures up to 5 mm. No hydronephrosis. Simple left renal cyst. No suspicious solid mass lesions. Bladder: Pre-void bladder volume is 101 mL. Post-void residual is 77 mL. Pre-void images demonstrate no intraluminal masses or stones. Mild diffuse bladder wall thickening is noted. On pre-void images, bilateral ureteral jets are noted with color Doppler interrogation. (Of note, ureteral jets may not be detectable in up to 25% of cases due to insufficient differences in specific gravity between ureteral and bladder urine). Miscellaneous: No free pelvic fluid. IMPRESSION: 1. Bilateral nonobstructing renal calculi. No hydronephrosis. 2. Mild diffuse bladder wall thickening, possibly related to underdistention versus chronic outlet obstruction or cystitis. Recommend clinical correlation. 3. Postvoid residual bladder volume is 77 mL. Approved by: Bryant Mobley M.D. on 11/20/2022 at 17:41
[2022-11-20 17:59] VITALS: BP 126/82; PULSE 73; RESP 16; TEMP 36.4; O2SAT 98
--- NOTE | 2022-11-20 19:06 | ED.MALEGU ---
HPI - Male Genitourinary General Chief complaint: Urogenital-Male Stated complaint: states passing a kidney stone Time Seen by Provider: 11/20/22 15:40 Source: patient Mode of arrival: Ambulatory History of Present Illness HPI Narrative: Patient is a 57-year-old male who presents with significant flank pain. He has a long history of recurrent kidney stones. He lives on [facility] and did not have enough pain medicine to tolerate this episode so he came here. He takes tamsulosin every day and frequently notices that he passes . He routinely takes 10 mg of oxycodone as needed for renal colic. He is had no fever or chills, has not noticed any blood in his urine today but did see some yesterday, does not have any pain with urination. He is had no nausea or vomiting or abdominal pain. Pain is currently 10/10. He is previously seen several urologists and declines any further follow up with Urology. Related Data Previous Rx's Medication Instructions Recorded tamsulosin 0.4 mg capsule See Rx Instructions .Route 07/18/22 .COMPLEX #60 caps metformin 500 mg tablet 1,000 mg (2 x 500 mg) PO BID #120 10/22/22 tabs oxycodone 10 mg tablet See Rx Instructions PO BID PRN 11/06/22 pain #28 tabs hydrochlorothiazide 25 mg tablet See Rx Instructions .Route 11/18/22 .COMPLEX #90 tabs lisinopril 10 mg tablet See Rx Instructions .Route 11/18/22 .COMPLEX #90 tabs metoprolol succinate 25 mg See Rx Instructions .Route 11/18/22 tablet,extended release 24 hr .COMPLEX #90 tabs oxycodone 5 mg tablet 5 mg PO Q8H PRN pain #10 tabs 11/20/22 Allergies Allergy/AdvReac Type Severity Reaction Status Date / Time No Known Drug Allergies Allergy Verified 10/22/22 10:30 Review of Systems Review of Systems ROS Unobtainable: All systems reviewed & are unremarkable except as noted in HPI and below Patient History Social History Smoking Status: Never smoker Smoking Status: Never smoker alcohol intake frequency: 0-2 drinks per day Substance Use Type: does not use Exam Narrative Exam Narrative: GENERAL: 57 year old patient appears stated age. Well-developed patient, in severe distress, bent over a chair with his knees on the floor. NEURO: AOx3. HEAD: Atraumatic. Normocephalic. EYES: Pupils equal round and reactive. Extraocular motions intact. No scleral icterus. No injection or drainage. ENT: Nose without bleeding or purulent drainage. Airway patent. NECK: Trachea midline. Non tender CARDIOVASCULAR: Regular rate and rhythm without murmurs, gallops, or rubs. RESPIRATORY: Clear to auscultation. Breath sounds equal bilaterally. No wheezes, rales, or rhonchi. GASTROINTESTINAL: Abdomen soft, non-tender, nondistended. EXTREMITIES: No edema or joint tenderness. SKIN: No rash or erythema of visible areas Initial Vital Signs Initial Vital Signs: Vital Signs Temperature 98.8 F 11/20/22 15:01 Pulse Rate 99 H 11/20/22 15:01 Respiratory Rate 18 11/20/22 15:01 Blood Pressure 159/87 H 11/20/22 15:01 Pulse Oximetry 99 11/20/22 15:01 Oxygen Delivery Method Room Air 11/20/22 15:01 Course Orders Ordered: ED Orders 11/20/22 15:35 Complete Blood Count AUTO DIFF Stat Comprehensive Metabolic Panel Stat Lipase Stat 11/20/22 16:50 US renal complete Stat Discontinued Medications Hydromorphone HCl (Hydromorphone 1 Mg Inj) 1 mg IV NOW ONE Stop: 11/20/22 15:41 Last Admin: 11/20/22 16:01 Dose: 1 mg Documented By: NATHANAEL Hydromorphone HCl (Hydromorphone 1 Mg Inj) 1 mg IV NOW ONE Stop: 11/20/22 16:22 Last Admin: 11/20/22 16:33 Dose: 1 mg Documented By: AUDREY Sodium Chloride (Normal Saline 0.9%) 1,000 mls @ 1,000 mls/hr IV BOLUS ONE Stop: 11/20/22 16:39 Last Infusion: 11/20/22 16:59 Dose: Infused Documented By: Admin: 11/20/22 16:01 Dose: 1,000 mls/hr Documented By: NATHANAEL Ondansetron HCl (Ondansetron 4 Mg Odt) 4 mg PO NOW PRN PRN Reason: Nausea And Vomiting Ondansetron HCl (Ondansetron 4 Mg/2 Ml Inj) 4 mg IV NOW PRN PRN Reason: Nausea And Vomiting Last Admin: 11/20/22 16:01 Dose: 4 mg Documented By: [facility] Vital Signs Vital signs: Vital Signs - 8 hr 11/20/22 15:01 11/20/22 17:59 Temperature 98.8 F 97.6 F Pulse Rate 99 H 73 Respiratory Rate 18 16 Blood Pressure 159/87 H 126/82 Pulse Oximetry 99 98 Oxygen Delivery Method Room Air Room Air MDM - Male Genitourinary Lab Data 11/20/22 15:35 11/20/22 15:35 Labs: Lab Results 11/20/22 Range/Units 15:35 WBC 7.9 (4.5-11.0) X10^3/uL RBC 4.84 (4.5-5.9) X10^6/uL Hgb 14.6 (13.5-17.5) g/dL Hct 43.0 (41-53) % MCV 88.9 (80-100) fL MCH 30.2 (26-34) PG MCHC 33.9 (30-36) % RDW 13.5 (11.6-14.8) % Plt Count 301 (150-400) X10^3/uL Neut % (Auto) 64.8 (50-75) % Lymph % (Auto) 24.7 L (25-40) % [place] % (Auto) 7.5 (3-14) % Eos % (Auto) 2.0 (2-4) % Baso % (Auto) 1.0 (0-2) % Neut # (Auto) 5200 (2842-6148) /uL Lymph # (Auto) 2000 (3880-1557) /uL [place] # (Auto) 600 (0-900) /uL Eos # (Auto) 200 (0-450) /uL Baso # (Auto) 100 (0-100) /uL Sodium 138 (137-145) mmol/L Potassium 4.0 (3.4-5.1) mmol/L Chloride 105 (98-107) mmol/L Carbon Dioxide 25 (22-32) mmol/L BUN 18 (9-20) mg/dL Creatinine 0.78 (0.66-1.25) mg/dL Estimated GFR > 60 (>60) mL/min BUN/Creatinine Ratio 23.1 H (6-22) Glucose 132 H (70-100) mg/dL Calcium 9.7 (8.4-10.2) mg/dL Total Bilirubin 0.9 (0.2-1.3) mg/dL AST 23 (17-59) IU/L ALT 19 (<50) IU/L Alkaline Phosphatase 48 (38-126) U/L Total Protein 7.3 (6.3-8.2) g/dL Albumin 4.3 (3.5-5.0) g/dL Globulin 3.0 (1.7-4.1) g/dL Albumin/Globulin Ratio 1.4 (1.0-2.8) Lipase 86 (23-300) U/L Urine Dip Bedside Urine Glucose Negative Bedside Urine Bilirubin - Negative Bedside Urine Ketone - Negative Urine Specific [place] 1.030 Bedside Urine Occult Blood +++ Bedside Urine pH 6.0 Bedside Urine Protein - Negative Bedside Urine Urobilinogen - Negative Bedside Urine Nitrite - Negative Bedside Urine Leukocytes - Negative Esterase Imaging Data US - abdomen: Radiologist's Impression: PROCEDURE: US RENAL COMPLETE INDICATIONS: LEFT FLANK PAIN TECHNIQUE: Real-time scanning was performed of the kidneys and bladder, with image documentation. COMPARISON: [facility], CT, CT KIDNEY URETER BLADDER (KUB), 05/08/2022, 21:08. FINDINGS: Kidneys: Kidneys are normal in size. Right kidney measures 10.0 cm long; left kidney measures 11.5 cm long. Right renal cortical thickness is 2.0 cm; left renal cortical thickness is 1.8 cm. Renal cortical echotexture is normal. Multiple bilateral renal calculi, the largest is located on the right and measures up to 5 mm. No hydronephrosis. Simple left renal cyst. No suspicious solid mass lesions. Bladder: Pre-void bladder volume is 101 mL. Post-void residual is 77 mL. Pre-void images demonstrate no intraluminal masses or stones. Mild diffuse bladder wall thickening is noted. On pre-void images, bilateral ureteral jets are noted with color Doppler interrogation. (Of note, ureteral jets may not be detectable in up to 25% of cases due to insufficient differences in specific gravity between ureteral and bladder urine). Miscellaneous: No free pelvic fluid. IMPRESSION: 1. Bilateral nonobstructing renal calculi. No hydronephrosis. 2. Mild diffuse bladder wall thickening, possibly related to underdistention versus chronic outlet obstruction or cystitis. Recommend clinical correlation. 3. Postvoid residual bladder volume is 77 mL. Approved by: Bryant Mobley M.D. on 11/20/2022 at 17:41 MDM Narrative Medical decision making narrative: Multiple etiologies for patient's symptoms considered including, but not limited to: Nephrolithiasis, UTI, pyelonephritis, cholecystitis. Labs with no clinically significant abnormality, urine with 3+ blood. Ultrasound shows multiple nonobstructing bilateral stones. There is no hydronephrosis. There is mild bladder wall thickening consistent with cystitis and a small postvoid residual noted. Patient is aware of the general treatment and trajectory of this condition, we will increase fluids, use pain medications as needed, continue tamsulosin. Strongly encouraged him to follow up with Urology. Prescription review shows that he was recently prescribed #28 10 mg tabs of oxycodone in October. I will prescribe a few more doses of pain [place] I would encourage him to return to his primary care for more prescriptions as I do not know his full medical history and the reasons that he takes opiate medications aside from kidney stones. He should seek further care if he develops fever or chills or other signs of infection. Patient's symptoms improved over duration of stay with above-stated therapies. Findings and discharge diagnosis discussed with patient/family followed by verbalization of understanding Return precautions discussed with patient/family whom verbalize understanding of diagnosis and plan Discharge Plan Departure Patient Disposition: Home Clinical Impression: Nephrolithiasis Hematuria Qualifiers: Hematuria type: other microscopic Qualified Code(s): R31.29 - Other microscopic hematuria Instructions: DI for Kidney Stones Activity Restrictions/Additional Instructions: *You have been diagnosed with kidney stones. There is no evidence of hydronephrosis, infection of your urine, or obstructing stone. This means that the stone that is currently causing you pain and the stones that are your kidneys currently should be able to pass without intervention. Please drink lots of water, you can continue to take ibuprofen and oxycodone as needed. Follow-up with your primary care as needed. If you are interested in seeing a urologist, please ask your primary care for referral. *What to do: *Please continue to take your regular medications as directed. [x] New medication prescriptions sent to your pharmacy: [[facility]] [ ] New medication written as a paper prescription [ ] No new medications given *Please follow up with your primary care provider in 2-3 days, call for an appointment. Let them know you were seen in the Emergency Department and that we ask that you be seen in follow up. We will electronically transmit a record of today's note if your PCP is in our system *If you do not have a primary care provider please contact the [facility] Resource line at [phone]. They will ask some questions about your medical history and help get you set up with a doctor in the community. *Return to Emergency Department if you should have any new, worsening or concerning symptoms, such as [fever greater than 101 F, shaking chills, worsening pain, persistent vomiting or other concerning symptoms]. Prescriptions: New oxycodone 5 mg tablet 5 mg PO Q8H PRN (Reason: pain) Qty: 10 0RF Rx Instructions: talk 1-2 tabs every 8 hours PRN severe pain No Action tamsulosin 0.4 mg capsule See Rx Instructions .ROUTE .COMPLEX Qty: 60 6RF Dose Instruction: TAKE TWO CAPSULES BY MOUTH AT BEDTIME Rx Instructions: TAKE TWO CAPSULES BY MOUTH AT BEDTIME hydrochlorothiazide 25 mg tablet See Rx Instructions .ROUTE .COMPLEX Qty: 90 3RF Dose Instruction: TAKE ONE TABLET BY MOUTH EVERY DAY Rx Instructions: TAKE ONE TABLET BY MOUTH EVERY DAY metoprolol succinate 25 mg tablet extended release 24 hr See Rx Instructions .ROUTE .COMPLEX Qty: 90 3RF Dose Instruction: TAKE ONE TABLET BY MOUTH EVERY DAY Rx Instructions: TAKE ONE TABLET BY MOUTH EVERY DAY lisinopril 10 mg tablet See Rx Instructions .ROUTE .COMPLEX Qty: 90 3RF Dose Instruction: TAKE ONE TABLET BY MOUTH EVERY DAY Rx Instructions: TAKE ONE TABLET BY MOUTH EVERY DAY metformin 500 mg tablet 1,000 mg PO BID Qty: 120 1RF oxycodone 10 mg tablet See Rx Instructions PO BID PRN (Reason: pain) Qty: 28 0RF Hold Instructions: insurance denied Rx Instructions: take 1-2 only as needed per day for renal colic. Must last 30 days Release date 11/06/22 Referrals: Cheyenne Cadet PA-C [Primary Care Provider] - Stand Alone Forms: Patient Portal/API
== END 2022-11-20 18:01 | disposition home or self-care (01) ==
PROVIDERS: Emergency Medicine; Emergency Provider Physician Assistant; PCP Physician Assistant
DX: N20.0 Calculus of kidney (principal); R31.9 Hematuria, unspecified
CPT/HCPCS: 36415; 76770; 80053; 81003; 83690; 85025; 96361; 96374; 96375; 96376; 99284; J1170; J2405

== ENCOUNTER 2022-11-26 13:57 | Emergency (ER) | payer OTHER, SELFPAY ==
[2022-11-26] VITALS (9 sets, daily range): BP systolic 115–148; BP diastolic 75–102; PULSE 95–127; RESP 18–22; TEMP 36.3; O2SAT 93–100; BMI 29.0
[2022-11-26] MEDS: HYDROMORPHONE 1 MG INJ IV ×2 (14:21→15:22)
[2022-11-26] MEDS: ONDANSETRON 4 MG/2 ML INJ IV (14:23)
--- NOTE | 2022-11-26 14:28 | DI.CT.S_ITS ---
PROCEDURE: CT KIDNEY URETER BLADDER (KUB) INDICATIONS: hx kidney stones; L flank and groin pain TECHNIQUE: Axial sections were acquired from the lung bases to the pubic symphysis. Coronal and sagittal reformats were performed. For radiation dose reduction, the following was used: automated exposure control, adjustment of mA and/or kV according to patient size. COMPARISON: [facility], CT, CT KIDNEY URETER BLADDER (KUB), 05/08/2022, 21:08. FINDINGS: Image quality: Good Lower chest: Possible basal atelectasis. No hiatal hernia. Normal heart size. Solid organs: The liver appears unremarkable. Cholecystectomy clips. Again seen is biliary ductal dilation post cholecystectomy. No pathologic pancreatic ductal dilation. There is mild atrophy of the pancreatic parenchyma. No splenomegaly. No adrenal nodules. No hydronephrosis or obstructing calcified stone. Nonobstructing calculi are seen bilaterally, under 5 mm. Suspected cystic lesion in the left lower pole with calcifications also again seen. This was confirmed to be cystic on ultrasound. Vessels and lymph nodes: Atherosclerotic calcifications without abdominal aortic aneurysm. No pathologic lymph nodes by size criteria. Bowel and peritoneum: No evidence of small bowel obstruction. No pathologic ascites or drainable abscess. Body wall: Midline upper abdominal ventral hernia containing congested omentum. There is also a fat containing right inguinal hernia. Pelvis: Bladder is unremarkable. No calcified stone. Left prostate calcification again seen. Prostate is not well evaluated on this study. Bones: There are degenerative changes. No acute or suspicious osseous finding. IMPRESSION: There are bilateral nonobstructing renal calculi. No hydronephrosis. Other findings as above. Dictated by: Joseph Patterson M.D. on 11/26/2022 at 15:46 Approved by: Joseph Patterson M.D. on 11/26/2022 at 15:52
[2022-11-26 14:37] LABS: Add Manual Diff / Slide Review NO; Basophils Absolute Auto 100 /uL (0-100); Basophils Percent Auto 1.1 % (0-2); Eosinophils Absolute Auto 200 /uL (0-450); Eosinophils Percent Auto 2.1 % (2-4); Hematocrit 45.2 % (41-53); Hemoglobin 15.6 g/dL (13.5-17.5); Lymphocytes Absolute Auto 2000 /uL (1100-4500); Lymphocytes Percent Auto 24.8 % (25-40); Mean Corpuscular HGB Conc 34.6 % (30-36); Mean Corpuscular Hemoglobin 30.2 PG (26-34); Mean Corpuscular Volume 87.4 fL (80-100); Monocytes Absolute Auto 700 /uL (0-900); Monocytes Percent Auto 8.5 % (3-14); Neutrophils Absolute Auto 5200 /uL (1500-7000); Neutrophils Percent Auto 63.5 % (50-75); Platelet Count 301 X10^3/uL (150-400); Red Blood Cell Count 5.17 X10^6/uL (4.5-5.9); Red Cell Distribution Width 13.3 % (11.6-14.8); White Blood Cell Count 8.1 X10^3/uL (4.5-11.0)
[2022-11-26 14:51] LABS: Alanine Aminotransferase 22 IU/L (<50); Albumin 4.5 g/dL (3.5-5.0); Albumin Globulin Ratio 1.4 (1.0-2.8); Alkaline Phosphatase 52 U/L (38-126); Aspartate Aminotransferase 23 IU/L (17-59); BUN Creatinine Ratio 22.9 (6-22); Bilirubin Total 0.6 mg/dL (0.2-1.3); Blood Urea Nitrogen 16 mg/dL (9-20); Calcium 10.3 mg/dL (8.4-10.2); Carbon Dioxide 23 mmol/L (22-32); Chloride 102 mmol/L (98-107); Estimated Glomerular Filt Rate > 60 mL/min (>60); Globulin 3.2 g/dL (1.7-4.1); Glucose 131 mg/dL (70-100); HEMOLYSIS 15 (0-50); Lipase 57 U/L (23-300); Sodium 137 mmol/L (137-145); Total Protein 7.7 g/dL (6.3-8.2)
--- NOTE | 2022-11-26 16:11 | DI.US.S_ITS ---
PROCEDURE: US SCROTUM INDICATIONS: LEFT TESTICLE PAIN WITH DIFFICULTY WITH URINATION TECHNIQUE: Real-time scanning was performed of the scrotum and testicles, with image documentation. Color and pulse Doppler interrogation was performed of both testicles. COMPARISON: None. FINDINGS: Right: Testicle is normal in size at 4.8 x 3.4 x 2.2 cm, and homogenous in echotexture. Epididymis is normal in overall size and morphology. No hydrocele or varicoceles. Overlying scrotal skin is normal in thickness. Left: Testicle is normal in size at 4.4 x 3.2 x 1.9 cm, and homogeneous in echotexture. Epididymis is normal in overall size and morphology. Partially thrombosed varicocele. Overlying scrotal skin is normal in thickness. Doppler: Mildly hyperemic changes along the medial aspect the left testicle. No focal lesion. Normal vascular flow in the right testicle. IMPRESSION: 1. Mild hypervascularity along the medial aspect the left testicle may indicate developing inflammation/infection. Correlate with UA. 2. Partially thrombosed left venous varicocele. 3. Preliminary report conveyed by the business services manager to the ordering provider. Dictated by: Riddhi Solano M.D. on 11/26/2022 at 17:10 Approved by: Riddhi Solano M.D. on 11/26/2022 at 17:14
[2022-11-26 16:24] LABS: Culture Indicated Urine Specimen Cultured; Squamous Epithelial Cell Urine 1-5 /HPF (0-5/HPF); WBC Urine 0-1/HPF (0-5/HPF)
--- NOTE | 2022-11-26 16:29 | ED.ABDPAIN ---
HPI - Abdominal Pain <Lis Davies PA-C - Last Filed: 11/26/22 18:41> General Chief Complaint: Abdominal Pain Stated Complaint: passing a kidney stone Time Seen by Provider: 11/26/22 14:11 Source: patient Mode of arrival: Ambulatory History of Present Illness HPI narrative: 57-year-old male with past medical history diabetes, hypertension, hypercholesterolemia, nephrolithiasis presents to the ED with 2 days of left-sided flank pain that is radiating to the front down to the left groin and testicle. Patient endorses mild nausea, denies vomiting. Patient denies fever, chills. Patient was seen in the ED on 11/20/22 for the same complaint, ultrasound showed multiple stones but no obstructing stones and no UTI. Patient was discharged with oxycodone and tamsulosin, recommended to see a urologist for follow-up. Related Data Previous Rx's Medication Instructions Recorded tamsulosin 0.4 mg capsule See Rx Instructions .Route 07/18/22 .COMPLEX #60 caps metformin 500 mg tablet 1,000 mg (2 x 500 mg) PO BID #120 10/22/22 tabs oxycodone 10 mg tablet See Rx Instructions PO BID PRN 11/06/22 pain #28 tabs hydrochlorothiazide 25 mg tablet See Rx Instructions .Route 11/18/22 .COMPLEX #90 tabs lisinopril 10 mg tablet See Rx Instructions .Route 11/18/22 .COMPLEX #90 tabs metoprolol succinate 25 mg See Rx Instructions .Route 11/18/22 tablet,extended release 24 hr .COMPLEX #90 tabs oxycodone 5 mg tablet 5 mg PO Q8H PRN pain #10 tabs 11/20/22 sulfamethoxazole 800 1 tab PO BID 10 days #20 tabs 11/26/22 mg-trimethoprim 160 mg tablet (Bactrim DS) Allergies Allergy/AdvReac Type Severity Reaction Status Date / Time No Known Drug Allergies Allergy Verified 10/22/22 10:30 Review of Systems <Lis Davies PA-C - Last Filed: 11/26/22 18:41> Constitutional Constitutional: Denies chills, Denies fatigue, Denies fever(s), Denies frequent falls, Denies lethargy and Denies weakness Eyes Eyes: Denies change in vision, Denies eye discharge, Denies irritation and Denies loss of vision ENT Ears, Nose, Mouth, and Throat: Denies change in voice, Denies dizziness, Denies neck pain, Denies sore throat and Denies throat swelling Cardiovascular Cardiovascular: Denies chest pain, Denies irregular heart rhythm, Denies lightheadedness, Denies palpitations, Denies dyspnea, Denies dyspnea on exertion and Denies orthopnea Respiratory Respiratory: Denies cough, Denies dyspnea, Denies dyspnea on exertion and Denies wheezing Gastrointestinal Gastrointestinal: Reports abdominal pain, Denies change in bowel habits, Denies diarrhea, Reports nausea and Denies vomiting Genitourinary Genitourinary: Reports testicular pain Musculoskeletal Musculoskeletal: Denies neck pain and Denies numbness Integumentary/Breasts Skin/Breast: Denies pruritus, Denies erythema, Denies rash and Denies wounds Neurologic Neurologic: Denies behavioral changes, Denies confusion, Denies dizziness, Denies frequent falls, Denies loss of vision, Denies numbness and Denies weakness Psychiatric Psychiatric: Denies anxiety, Denies behavioral changes, Denies confusion, Denies depression, Denies homicidal ideation and Denies suicidal ideation Endocrine Endocrine: Denies fatigue, Denies flushing and Denies palpitations Hematologic/Lymphatic Hematologic/Lymphatic: Denies easy bruising Allergic/Immunologic Allergic/Immunologic: Denies urticaria, Denies throat swelling and Denies wheezing Patient History <Lis Davies PA-C - Last Filed: 11/26/22 18:41> Social History Smoking Status: Never smoker Smoking Status: Never smoker alcohol intake frequency: 0-2 drinks per day Substance Use Type: does not use Exam <Lis Davies PA-C - Last Filed: 11/26/22 18:41> Narrative Exam Narrative: Const General:?cooperative, healthy appearing and comfortable [facility] Head:?normal to inspection Ears:?hearing grossly normal bilaterally Nose:?external nose normal Face and sinus:?normal facial exam and sinuses nontender Mouth:?oral mucosae normal Throat:?posterior oropharynx normal Eyes General:?appearance normal, both eyes and all related structures Neck Neck:?normal visual inspection and no lymphadenopathy noted Resp Effort & Inspection:?normal respiratory effort Auscultation:?clear to auscultation bilaterally Cardio Rate:?regular rate Rhythm:?regular rhythm GI Abdomen is soft, nondistended, nontender to palpation. There is no CVA tenderness. Neuro General:?patient alert, patient awake and patient oriented x3 Initial Vital Signs Initial Vital Signs: Vital Signs Pulse Rate 101 H 11/26/22 14:07 Pulse Oximetry 100 11/26/22 14:07 <Jared Tejada MD - Last Filed: 11/27/22 07:21> Initial Vital Signs Initial Vital Signs: Vital Signs Pulse Rate 101 H 11/26/22 14:07 Pulse Oximetry 100 11/26/22 14:07 Course <Lis Davies PA-C - Last Filed: 11/26/22 18:41> Orders Ordered: Discontinued Medications Hydromorphone HCl (Hydromorphone 1 Mg Inj) 1 mg IV NOW ONE Stop: 11/26/22 14:18 Last Admin: 11/26/22 14:21 Dose: 1 mg Documented By: MANOHAR Hydromorphone HCl (Hydromorphone 1 Mg Inj) 1 mg IV NOW ONE Stop: 11/26/22 15:18 Last Admin: 11/26/22 15:22 Dose: 1 mg Documented By: MANOHAR Ketorolac Tromethamine (Ketorolac 30 Mg/Ml Vial) 15 mg IV NOW ONE Stop: 11/26/22 14:08 Last Admin: 11/26/22 14:18 Dose: Not Given Documented By: AMBER Ondansetron HCl (Ondansetron 4 Mg/2 Ml Inj) 4 mg IV NOW ONE Stop: 11/26/22 14:07 Last Admin: 11/26/22 14:18 Dose: Not Given Documented By: AMBER Ondansetron HCl (Ondansetron 4 Mg Odt) 4 mg PO NOW PRN PRN Reason: Nausea And Vomiting Ondansetron HCl (Ondansetron 4 Mg/2 Ml Inj) 4 mg IV NOW PRN PRN Reason: Nausea And Vomiting Last Admin: 11/26/22 14:23 Dose: 4 mg Documented By: MANOHAR Vital Signs Vital signs: Vital Signs - 8 hr 11/26/22 14:07 11/26/22 14:11 11/26/22 15:40 Temperature 97.4 F L Pulse Rate 101 H 102 H Respiratory Rate 22 Blood Pressure 147/102 H 125/75 Pulse Oximetry 100 97 Oxygen Delivery Method Room Air 11/26/22 15:40 11/26/22 16:00 11/26/22 16:11 Temperature Pulse Rate 127 H 105 H Respiratory Rate Blood Pressure 148/94 H Pulse Oximetry 98 97 Oxygen Delivery Method 11/26/22 16:11 11/26/22 16:30 11/26/22 17:00 Temperature Pulse Rate 108 H 102 H 103 H Respiratory Rate Blood Pressure Pulse Oximetry 93 98 95 Oxygen Delivery Method 11/26/22 17:30 11/26/22 17:30 11/26/22 18:00 Temperature Pulse Rate 101 H Respiratory Rate Blood Pressure 129/85 115/76 Pulse Oximetry 95 Oxygen Delivery Method 11/26/22 18:00 Temperature Pulse Rate 95 H Respiratory Rate 18 Blood Pressure Pulse Oximetry 95 Oxygen Delivery Method Room Air <Jared Tejada MD - Last Filed: 11/27/22 07:21> Orders Ordered: Discontinued Medications Hydromorphone HCl (Hydromorphone 1 Mg Inj) 1 mg IV NOW ONE Stop: 11/26/22 14:18 Last Admin: 11/26/22 14:21 Dose: 1 mg Documented By: MANOHAR Hydromorphone HCl (Hydromorphone 1 Mg Inj) 1 mg IV NOW ONE Stop: 11/26/22 15:18 Last Admin: 11/26/22 15:22 Dose: 1 mg Documented By: MANOHAR Ketorolac Tromethamine (Ketorolac 30 Mg/Ml Vial) 15 mg IV NOW ONE Stop: 11/26/22 14:08 Last Admin: 11/26/22 14:18 Dose: Not Given Documented By: AMBER Ondansetron HCl (Ondansetron 4 Mg/2 Ml Inj) 4 mg IV NOW ONE Stop: 11/26/22 14:07 Last Admin: 11/26/22 14:18 Dose: Not Given Documented By: AMBER Ondansetron HCl (Ondansetron 4 Mg Odt) 4 mg PO NOW PRN PRN Reason: Nausea And Vomiting Ondansetron HCl (Ondansetron 4 Mg/2 Ml Inj) 4 mg IV NOW PRN PRN Reason: Nausea And Vomiting Last Admin: 11/26/22 14:23 Dose: 4 mg Documented By: MANOHAR Vital Signs Vital signs: Vital Signs - 8 hr 11/26/22 14:07 11/26/22 14:11 11/26/22 15:40 Temperature 97.4 F L Pulse Rate 101 H 102 H Respiratory Rate 22 Blood Pressure 147/102 H 125/75 Pulse Oximetry 100 97 Oxygen Delivery Method Room Air 11/26/22 15:40 11/26/22 16:00 11/26/22 16:11 Temperature Pulse Rate 127 H 105 H Respiratory Rate Blood Pressure 148/94 H Pulse Oximetry 98 97 Oxygen Delivery Method 11/26/22 16:11 11/26/22 16:30 11/26/22 17:00 Temperature Pulse Rate 108 H 102 H 103 H Respiratory Rate Blood Pressure Pulse Oximetry 93 98 95 Oxygen Delivery Method 11/26/22 17:30 11/26/22 17:30 11/26/22 18:00 Temperature Pulse Rate 101 H Respiratory Rate Blood Pressure 129/85 115/76 Pulse Oximetry 95 Oxygen Delivery Method 11/26/22 18:00 Temperature Pulse Rate 95 H Respiratory Rate 18 Blood Pressure Pulse Oximetry 95 Oxygen Delivery Method Room Air MDM - Abdominal Pain <Hyma PER Davies - Last Filed: 11/26/22 18:41> Lab Data 11/26/22 14:30 11/26/22 14:30 Labs: Lab Results 11/26/22 11/26/22 Range/Units 14:30 15:35 WBC 8.1 (4.5-11.0) X10^3/uL RBC 5.17 (4.5-5.9) X10^6/uL Hgb 15.6 (13.5-17.5) g/dL Hct 45.2 (41-53) % MCV 87.4 (80-100) fL MCH 30.2 (26-34) PG MCHC 34.6 (30-36) % RDW 13.3 (11.6-14.8) % Plt Count 301 (150-400) X10^3/uL Neut % (Auto) 63.5 (50-75) % Lymph % (Auto) 24.8 L (25-40) % [place] % (Auto) 8.5 (3-14) % Eos % (Auto) 2.1 (2-4) % Baso % (Auto) 1.1 (0-2) % Neut # (Auto) 5200 (4599-3895) /uL Lymph # (Auto) 2000 (9234-4834) /uL [place] # (Auto) 700 (0-900) /uL Eos # (Auto) 200 (0-450) /uL Baso # (Auto) 100 (0-100) /uL Sodium 137 (137-145) mmol/L Potassium 4.0 (3.4-5.1) mmol/L Chloride 102 (98-107) mmol/L Carbon Dioxide 23 (22-32) mmol/L BUN 16 (9-20) mg/dL Creatinine 0.70 (0.66-1.25) mg/dL Estimated GFR > 60 (>60) mL/min BUN/Creatinine Ratio 22.9 H (6-22) Glucose 131 H (70-100) mg/dL Calcium 10.3 H (8.4-10.2) mg/dL Total Bilirubin 0.6 (0.2-1.3) mg/dL AST 23 (17-59) IU/L ALT 22 (<50) IU/L Alkaline Phosphatase 52 (38-126) U/L Total Protein 7.7 (6.3-8.2) g/dL Albumin 4.5 (3.5-5.0) g/dL Globulin 3.2 (1.7-4.1) g/dL Albumin/Globulin Ratio 1.4 (1.0-2.8) Lipase 57 (23-300) U/L Urine RBC >100/hpf H (0-5/HPF) Urine WBC 0-1/hpf (0-5/HPF) Ur Squamous Epith Cells 1-5 /hpf (0-5/HPF) Urine Bacteria Occasional (0-1) (None) Ur Culture Indicated? Specimen cultured Ur Chlamydia DNA (PCR) Not detected N gonorrhoeae DNA (PCR) Not detected Point of care testing: Urine Dip Bedside Urine Glucose Negative Bedside Urine Bilirubin - Negative Bedside Urine Ketone - Negative Urine Specific [place] 1.025 Bedside Urine Occult Blood +++ Bedside Urine pH 6.0 Bedside Urine Protein - Negative Bedside Urine Urobilinogen - Negative Bedside Urine Nitrite - Negative Bedside Urine Leukocytes - Negative Esterase MDM Narrative Medical decision making narrative: 57-year-old male with past medical history diabetes, hypertension, hypercholesterolemia, nephrolithiasis presents to the ED with 2 days of left-sided flank pain that is radiating to the front down to the left groin and testicle. Concern for obstructing kidney stone versus UTI versus pyelonephritis versus scrotal etiology versus other. Will obtain labs, UA, CT KUB. Will consider scrotal ultrasound if CT KUB negative. CT KUB shows bilateral nonobstructing renal calculi. There is no hydronephrosis. No acute findings. Ultrasound scrotum ordered. Will reassess. Scrotal ultrasound shows a partially thrombosed left venous varicocele. There is also mild hypervascularity along the medial aspect of the left testicle which might indicate a developing inflammation/infection. Findings were discussed with urologist Dr. Loja. He recommends Septra for the orchitis. He recommends supportive care for the varicocele including bedrest x2 days, elevation, ice, NSAIDs. He recommends follow-up with [facility] if patient does not feel better in 2-3 days. Discussed findings and Urology recommendations with patient. Prescribed antibiotic. Patient agrees to follow-up with Dr. Loja if his symptoms do not improve the next 2-3 days. ED return precautions were discussed with patient. Patient verbalized understanding. Medical records reviewed: Yes <Jared Tejada MD - Last Filed: 11/27/22 07:21> Lab Data Labs: Lab Results 11/26/22 11/26/22 Range/Units 14:30 15:35 WBC 8.1 (4.5-11.0) X10^3/uL RBC 5.17 (4.5-5.9) X10^6/uL Hgb 15.6 (13.5-17.5) g/dL Hct 45.2 (41-53) % MCV 87.4 (80-100) fL MCH 30.2 (26-34) PG MCHC 34.6 (30-36) % RDW 13.3 (11.6-14.8) % Plt Count 301 (150-400) X10^3/uL Neut % (Auto) 63.5 (50-75) % Lymph % (Auto) 24.8 L (25-40) % [place] % (Auto) 8.5 (3-14) % Eos % (Auto) 2.1 (2-4) % Baso % (Auto) 1.1 (0-2) % Neut # (Auto) 5200 (3464-9919) /uL Lymph # (Auto) 2000 (7673-3714) /uL [place] # (Auto) 700 (0-900) /uL Eos # (Auto) 200 (0-450) /uL Baso # (Auto) 100 (0-100) /uL Sodium 137 (137-145) mmol/L Potassium 4.0 (3.4-5.1) mmol/L Chloride 102 (98-107) mmol/L Carbon Dioxide 23 (22-32) mmol/L BUN 16 (9-20) mg/dL Creatinine 0.70 (0.66-1.25) mg/dL Estimated GFR > 60 (>60) mL/min BUN/Creatinine Ratio 22.9 H (6-22) Glucose 131 H (70-100) mg/dL Calcium 10.3 H (8.4-10.2) mg/dL Total Bilirubin 0.6 (0.2-1.3) mg/dL AST 23 (17-59) IU/L ALT 22 (<50) IU/L Alkaline Phosphatase 52 (38-126) U/L Total Protein 7.7 (6.3-8.2) g/dL Albumin 4.5 (3.5-5.0) g/dL Globulin 3.2 (1.7-4.1) g/dL Albumin/Globulin Ratio 1.4 (1.0-2.8) Lipase 57 (23-300) U/L Urine RBC >100/hpf H (0-5/HPF) Urine WBC 0-1/hpf (0-5/HPF) Ur Squamous Epith Cells 1-5 /hpf (0-5/HPF) Urine Bacteria Occasional (0-1) (None) Ur Culture Indicated? Specimen cultured Ur Chlamydia DNA (PCR) Not detected N gonorrhoeae DNA (PCR) Not detected Point of care testing: Urine Dip Bedside Urine Glucose Negative Bedside Urine Bilirubin - Negative Bedside Urine Ketone - Negative Urine Specific [place] 1.025 Bedside Urine Occult Blood +++ Bedside Urine pH 6.0 Bedside Urine Protein - Negative Bedside Urine Urobilinogen - Negative Bedside Urine Nitrite - Negative Bedside Urine Leukocytes - Negative Esterase Discharge Plan Departure Patient Disposition: Home Clinical Impression: Left varicocele, Orchitis Instructions: DI for Varicocele, DI for Orchitis Activity Restrictions/Additional Instructions: You were evaluated in the ED today for left-sided flank, groin, testicular pain. Your CT scan did not show any obstructing stones to explain your symptoms. Your urine shows no infection. Your ultrasound of the scrotum does show a developing orchitis which is an inflammation or infection of the testicle. You also have a partially thrombosed left venous varicocele which could also be causing testicular pain. You are being prescribed antibiotics for the orchitis. Please take those as prescribed. Supportive treatment for the varicocele is to elevate the testicle, apply ice, be on bedrest for 2 days. Please also take ibuprofen 600 mg 3 times a day until your symptoms improve. If your symptoms do not improve in 2-3 days, please call [facility] at [phone]. Please return to the ED if you have worsening symptoms, inability to urinate, fever, chills. Prescriptions: New sulfamethoxazole-trimethoprim [Bactrim DS] 800-160 mg tablet 1 tab PO BID 10 Days Qty: 20 0RF No Action tamsulosin 0.4 mg capsule See Rx Instructions .ROUTE .COMPLEX Qty: 60 6RF Dose Instruction: TAKE TWO CAPSULES BY MOUTH AT BEDTIME Rx Instructions: TAKE TWO CAPSULES BY MOUTH AT BEDTIME hydrochlorothiazide 25 mg tablet See Rx Instructions .ROUTE .COMPLEX Qty: 90 3RF Dose Instruction: TAKE ONE TABLET BY MOUTH EVERY DAY Rx Instructions: TAKE ONE TABLET BY MOUTH EVERY DAY metoprolol succinate 25 mg tablet extended release 24 hr See Rx Instructions .ROUTE .COMPLEX Qty: 90 3RF Dose Instruction: TAKE ONE TABLET BY MOUTH EVERY DAY Rx Instructions: TAKE ONE TABLET BY MOUTH EVERY DAY lisinopril 10 mg tablet See Rx Instructions .ROUTE .COMPLEX Qty: 90 3RF Dose Instruction: TAKE ONE TABLET BY MOUTH EVERY DAY Rx Instructions: TAKE ONE TABLET BY MOUTH EVERY DAY oxycodone 5 mg tablet 5 mg PO Q8H PRN (Reason: pain) Qty: 10 0RF Rx Instructions: talk 1-2 tabs every 8 hours PRN severe pain metformin 500 mg tablet 1,000 mg PO BID Qty: 120 1RF oxycodone 10 mg tablet See Rx Instructions PO BID PRN (Reason: pain) Qty: 28 0RF Hold Instructions: insurance denied Rx Instructions: take 1-2 only as needed per day for renal colic. Must last 30 days Release date 11/06/22 Referrals: Cheyenne Cadet PA-C [Primary Care Provider] - Stand Alone Forms: Patient Portal/API ED Sign-out <Jared Tejada MD - Last Filed: 11/27/22 07:21> Cosign ED Attending Cosignature Attestation: I was immediately available in the department for consultation. ?This documentation has been reviewed and I agree with assessment and plan. Supervised by Jared Tejada MD
[2022-11-26 16:46] LABS: Bacteria Urine Occasional (0-1); RBC Urine >100/HPF (0-5/HPF)
[2022-11-26 20:05] LABS: Urine N gonorrhoeae NOT DETECTED
[2022-11-26 20:11] LABS: Urine Chlamydia NOT DETECTED
== END 2022-11-26 18:32 | disposition home or self-care (01) ==
PROVIDERS: Emergency Medicine; Emergency Provider Student in an Organized Health Care Education/Training Program; PCP Physician Assistant
DX: I86.1 Scrotal varices (principal); N45.2 Orchitis; Z79.899 Other long term (current) drug therapy
CPT/HCPCS: 36415; 74176; 76870; 80053; 81003; 81015; 83690; 85025; 87086; 87491; 87591; 93975; 96374; 96375; 96376; 99284; J1170; J2405

== ENCOUNTER → 2022-12-17 12:01 | Outpatient (CLI) | payer OTHER, SELFPAY ==
[2022-12-17 19:29] LABS: Hemoglobin A1C% w Est Avg Glu 8.9 % (4.0-6.0)
== END ==
PROVIDERS: PCP Physician Assistant; Visit Provider Physician Assistant
DX: E11.9 Type 2 diabetes mellitus without complications (principal)
CPT/HCPCS: 83036

== ENCOUNTER → 2023-02-11 08:50 | Outpatient (CLI) | payer OTHER, SELFPAY ==
[2023-02-11 19:18] LABS: Add Manual Diff / Slide Review NO; Basophils Absolute Auto 0 /uL (0-100); Basophils Percent Auto 0.5 % (0-2); Eosinophils Absolute Auto 200 /uL (0-450); Eosinophils Percent Auto 2.8 % (2-4); Hematocrit 42.4 % (41-53); Hemoglobin 14.4 g/dL (13.5-17.5); Lymphocytes Absolute Auto 1800 /uL (1100-4500); Lymphocytes Percent Auto 33.6 % (25-40); Mean Corpuscular Volume 88.4 fL (80-100); Monocytes Absolute Auto 500 /uL (0-900); Monocytes Percent Auto 8.8 % (3-14); Neutrophils Absolute Auto 2900 /uL (1500-7000); Neutrophils Percent Auto 54.3 % (50-75); Platelet Count 284 X10^3/uL (150-400); Red Blood Cell Count 4.79 X10^6/uL (4.5-5.9); Red Cell Distribution Width 13.2 % (11.6-14.8); White Blood Cell Count 5.4 X10^3/uL (4.5-11.0)
[2023-02-11 19:31] LABS: Alanine Aminotransferase 21 IU/L (<50); Albumin Globulin Ratio 1.4 (1.0-2.8); Alkaline Phosphatase 41 U/L (38-126); Aspartate Aminotransferase 23 IU/L (17-59); BUN Creatinine Ratio 15.2 (6-22); Blood Urea Nitrogen 14 mg/dL (9-20); Calcium 9.8 mg/dL (8.4-10.2); Carbon Dioxide 29 mmol/L (22-32); Chloride 99 mmol/L (98-107); Estimated Glomerular Filt Rate > 60 mL/min (>60); Globulin 2.8 g/dL (1.7-4.1); Glucose 150 mg/dL (70-100); HEMOLYSIS < 15 (0-50); Potassium 4.2 mmol/L (3.4-5.1); Sodium 137 mmol/L (137-145); Total Protein 6.8 g/dL (6.3-8.2)
[2023-02-11 20:01] LABS: Hemoglobin A1C% w Est Avg Glu 7.4 % (4.0-6.0)
== END ==
PROVIDERS: PCP Physician Assistant; Visit Provider Physician Assistant
DX: I10 Essential (primary) hypertension (principal); E11.9 Type 2 diabetes mellitus without complications; Z79.899 Other long term (current) drug therapy
CPT/HCPCS: 80053; 83036; 85025

== ENCOUNTER → 2023-05-15 10:28 | Outpatient (CLI) | payer SELFPAY ==
[2023-05-15 20:41] LABS: Add Manual Diff / Slide Review NO; Basophils Absolute Auto 0 /uL (0-100); Basophils Percent Auto 1.1 % (0-2); Eosinophils Absolute Auto 100 /uL (0-450); Hematocrit 43.6 % (41-53); Hemoglobin 14.9 g/dL (13.5-17.5); Hemoglobin A1C% w Est Avg Glu 6.4 % (4.0-6.0); Lymphocytes Absolute Auto 1300 /uL (1100-4500); Lymphocytes Percent Auto 28.7 % (25-40); Mean Corpuscular HGB Conc 34.1 % (30-36); Mean Corpuscular Hemoglobin 30.5 PG (26-34); Mean Corpuscular Volume 89.3 fL (80-100); Monocytes Absolute Auto 500 /uL (0-900); Monocytes Percent Auto 11.4 % (3-14); Neutrophils Absolute Auto 2500 /uL (1500-7000); Neutrophils Percent Auto 56.8 % (50-75); Platelet Count 316 X10^3/uL (150-400); Red Blood Cell Count 4.88 X10^6/uL (4.5-5.9); Red Cell Distribution Width 13.5 % (11.6-14.8); White Blood Cell Count 4.4 X10^3/uL (4.5-11.0)
[2023-05-15 20:44] LABS: Alanine Aminotransferase 39 IU/L (<50); Albumin 4.3 g/dL (3.5-5.0); Albumin Globulin Ratio 1.4 (1.0-2.8); Alkaline Phosphatase 66 U/L (38-126); Aspartate Aminotransferase 39 IU/L (17-59); BUN Creatinine Ratio 18.8 (6-22); Bilirubin Total 1.3 mg/dL (0.2-1.3); Blood Urea Nitrogen 19 mg/dL (9-20); Calcium 9.8 mg/dL (8.4-10.2); Carbon Dioxide 28 mmol/L (22-32); Chloride 102 mmol/L (98-107); Cholesterol 174 mg/dL (140-199); Estimated Glomerular Filt Rate > 60 mL/min (>60); Globulin 3.1 g/dL (1.7-4.1); Glucose 166 mg/dL (70-100); HDL Cholesterol 49 mg/dL (40-60); HEMOLYSIS < 15 (0-50); LDL Cholesterol Calculated 103 mg/dL (<100); Potassium 4.4 mmol/L (3.4-5.1); Sodium 138 mmol/L (137-145); Total Protein 7.4 g/dL (6.3-8.2); Triglycerides 108 mg/dL (35-150)
[2023-05-15 21:15] LABS: Prostate Specific Antigen Scrn 0.397 ng/mL (0.1-4.0)
== END ==
PROVIDERS: PCP Physician Assistant; Visit Provider Physician Assistant
DX: Z12.5 Encounter for screening for malignant neoplasm of prostate (principal); I10 Essential (primary) hypertension; E11.9 Type 2 diabetes mellitus without complications; E78.00 Pure hypercholesterolemia, unspecified; Z79.899 Other long term (current) drug therapy
CPT/HCPCS: 80053; 80061; 83036; 85025; G0103

== ENCOUNTER → 2023-07-02 11:30 | Outpatient (CLI) | payer OTHER, SELFPAY ==
[2023-07-02 19:53] LABS: Add Manual Diff / Slide Review NO; Basophils Absolute Auto 0 /uL (0-100); Basophils Percent Auto 0.5 % (0-2); Eosinophils Absolute Auto 100 /uL (0-450); Eosinophils Percent Auto 2.1 % (2-4); Hemoglobin 14.3 g/dL (13.5-17.5); Lymphocytes Absolute Auto 1700 /uL (1100-4500); Lymphocytes Percent Auto 30.1 % (25-40); Mean Corpuscular HGB Conc 34.1 % (30-36); Mean Corpuscular Volume 87.9 fL (80-100); Monocytes Absolute Auto 500 /uL (0-900); Monocytes Percent Auto 9.4 % (3-14); Neutrophils Absolute Auto 3300 /uL (1500-7000); Neutrophils Percent Auto 57.9 % (50-75); Platelet Count 287 X10^3/uL (150-400); Red Blood Cell Count 4.78 X10^6/uL (4.5-5.9); Red Cell Distribution Width 13.3 % (11.6-14.8); White Blood Cell Count 5.7 X10^3/uL (4.5-11.0)
== END ==
PROVIDERS: PCP Physician Assistant; Visit Provider Physician Assistant
DX: R79.89 Other specified abnormal findings of blood chemistry (principal)
CPT/HCPCS: 85025

== ENCOUNTER → 2023-10-13 14:04 | Outpatient (CLI) | payer OTHER, SELFPAY ==
[2023-10-13 19:35] LABS: Creatinine Urine Random 70.19 mg/dL
[2023-10-13 19:44] LABS: Microalbumin Urine Random < 0.6 mg/dL (0-1.6)
== END ==
PROVIDERS: PCP Physician Assistant; Visit Provider Physician Assistant
DX: E11.9 Type 2 diabetes mellitus without complications (principal)
CPT/HCPCS: 82043; 82570

== ENCOUNTER → 2023-10-14 10:27 | Outpatient (CLI) | payer OTHER, SELFPAY ==
[2023-10-14 19:16] LABS: Add Manual Diff / Slide Review NO; Basophils Absolute Auto 0 /uL (0-100); Basophils Percent Auto 0.8 % (0-2); Eosinophils Absolute Auto 100 /uL (0-450); Hematocrit 39.7 % (41-53); Hemoglobin 13.4 g/dL (13.5-17.5); Lymphocytes Absolute Auto 1600 /uL (1100-4500); Lymphocytes Percent Auto 33.1 % (25-40); Mean Corpuscular HGB Conc 33.8 % (30-36); Mean Corpuscular Hemoglobin 30.7 PG (26-34); Mean Corpuscular Volume 90.9 fL (80-100); Monocytes Absolute Auto 400 /uL (0-900); Monocytes Percent Auto 9.4 % (3-14); Neutrophils Absolute Auto 2600 /uL (1500-7000); Neutrophils Percent Auto 54.7 % (50-75); Platelet Count 273 X10^3/uL (150-400); Red Blood Cell Count 4.37 X10^6/uL (4.5-5.9); Red Cell Distribution Width 13.8 % (11.6-14.8); White Blood Cell Count 4.7 X10^3/uL (4.5-11.0)
[2023-10-14 19:26] LABS: Alanine Aminotransferase 28 IU/L (<50); Albumin 3.7 g/dL (3.5-5.0); Albumin Globulin Ratio 1.4 (1.0-2.8); Alkaline Phosphatase 56 U/L (38-126); Aspartate Aminotransferase 30 IU/L (17-59); BUN Creatinine Ratio 18.5 (6-22); Bilirubin Total 1.1 mg/dL (0.2-1.3); Blood Urea Nitrogen 15 mg/dL (9-20); Calcium 9.4 mg/dL (8.4-10.2); Carbon Dioxide 25 mmol/L (22-32); Chloride 100 mmol/L (98-107); Estimated Glomerular Filt Rate > 60 mL/min (>60); Globulin 2.6 g/dL (1.7-4.1); Glucose 187 mg/dL (70-100); Hemoglobin A1C% w Est Avg Glu 5.7 % (4.0-6.0); Potassium 4.5 mmol/L (3.4-5.1); Sodium 132 mmol/L (137-145); Total Protein 6.3 g/dL (6.3-8.2)
[2023-10-14 19:27] LABS: HEMOLYSIS 78 (0-50)
== END ==
PROVIDERS: PCP Physician Assistant; Visit Provider Physician Assistant
DX: I10 Essential (primary) hypertension (principal); E11.9 Type 2 diabetes mellitus without complications; Z79.899 Other long term (current) drug therapy
CPT/HCPCS: 80053; 83036; 85025

== ENCOUNTER → 2023-10-22 09:00 | Outpatient (CLI) | payer OTHER, SELFPAY ==
[2023-10-24 10:10] LABS: Fecal Immunochemical Test Negative (Negative)
== END ==
PROVIDERS: PCP Physician Assistant; Visit Provider Physician Assistant
DX: Z12.11 Encounter for screening for malignant neoplasm of colon (principal); D64.9 Anemia, unspecified
CPT/HCPCS: 82274

== ENCOUNTER → 2023-11-18 10:28 | Outpatient (CLI) | payer OTHER, SELFPAY ==
[2023-11-18 19:43] LABS: Add Manual Diff / Slide Review NO; Basophils Absolute Auto 0 /uL (0-100); Basophils Percent Auto 0.6 % (0-2); Eosinophils Absolute Auto 100 /uL (0-450); Eosinophils Percent Auto 1.7 % (2-4); Hematocrit 43.4 % (41-53); Hemoglobin 14.9 g/dL (13.5-17.5); Lymphocytes Absolute Auto 1600 /uL (1100-4500); Lymphocytes Percent Auto 29.8 % (25-40); Mean Corpuscular HGB Conc 34.2 % (30-36); Mean Corpuscular Hemoglobin 30.7 PG (26-34); Mean Corpuscular Volume 89.8 fL (80-100); Monocytes Absolute Auto 500 /uL (0-900); Monocytes Percent Auto 8.8 % (3-14); Neutrophils Absolute Auto 3100 /uL (1500-7000); Neutrophils Percent Auto 59.1 % (50-75); Platelet Count 304 X10^3/uL (150-400); Red Blood Cell Count 4.84 X10^6/uL (4.5-5.9); Red Cell Distribution Width 13.5 % (11.6-14.8); White Blood Cell Count 5.2 X10^3/uL (4.5-11.0)
[2023-11-18 19:44] LABS: Appearance Urine UA CLEAR; Bilirubin Urine UA NEGATIVE (NEGATIVE); Color Urine UA YELLOW; Glucose Urine UA NEGATIVE (Negative); Ketones Urine UA NEGATIVE (NEGATIVE); Leukocyte Esterase Urine UA NEGATIVE (NEGATIVE); Nitrite Urine UA NEGATIVE (Negative); Occult Blood Urine UA 3+ (Negative); Protein Urine UA TRACE (Negative); Urobilinogen Urine UA 0.2 E.U./dL (0.2); pH Urine UA 6.5 (4.5-8.0)
[2023-11-18 19:47] LABS: HEMOLYSIS < 15 (0-50)
[2023-11-18 19:48] LABS: Iron 158 ug/dL (49-181)
[2023-11-18 19:51] LABS: Bacteria Urine Occasional (0-1); Culture Indicated Urine Cult Not Indicated; RBC Urine 10-30/HPF (0-5/HPF); Squamous Epithelial Cell Urine 0-1 /HPF (0-5/HPF); Urine Volume 10mL (spun); WBC Urine 0-1/HPF (0-5/HPF)
[2023-11-18 19:59] LABS: Percent Iron Saturation 47 % (20-50); Total Iron Binding Capacity 333 ug/dL (261-462)
[2023-11-18 20:01] LABS: Transferrin 248 mg/dL (206-381)
[2023-11-18 20:26] LABS: Ferritin 45 ng/mL (18-464)
[2023-11-18 20:43] LABS: Vitamin B12 543 pg/mL (239-931)
== END ==
PROVIDERS: PCP Physician Assistant; Visit Provider Physician Assistant
DX: R42 Dizziness and giddiness (principal); D64.9 Anemia, unspecified; Z79.899 Other long term (current) drug therapy; Z11.59 Encounter for screening for other viral diseases; Z11.4 Encounter for screening for human immunodeficiency virus [HIV]; Z87.448 Personal history of other diseases of urinary system
CPT/HCPCS: 81003; 81015; 82607; 82728; 83540; 83550; 85025; 86803; 87389

== ENCOUNTER 2023-11-27 08:48 | Emergency (ER) | payer OTHER, SELFPAY ==
--- NOTE | 2023-11-27 08:48 | ED_ITS ---
HPI - Abdominal Pain General Chief Complaint: Urogenital-Male Stated Complaint: passing a kidney stone Time Seen by Provider: 11/27/23 08:48 History of Present Illness HPI narrative: 38-year-old male with history of known kidney stones, complains of left flank pain last night, went away, again this morning, had old supply of oral Toradol, 30 mg through the morning, not helping the pain. Some nausea no vomiting. No diarrhea. No black or red stools. Related Data Previous Rx's Medication Instructions Recorded metoprolol succinate 25 mg 25 mg PO DAILY #90 tabs 08/14/23 tablet,extended release 24 hr metformin 500 mg tablet 1,000 mg (2 x 500 mg) PO BID #360 09/08/23 tabs oxycodone 10 mg tablet See Rx Instructions PO BID PRN 10/21/23 pain (scale score 7-10) #28 tabs semaglutide 0.25 mg or 0.5 mg (2 0.5 mg (0.736 mL) SUBCUT QWEEK #3 10/21/23 mg/3 mL) subcutaneous pen injector mL (Ozempic) hydrochlorothiazide 25 mg tablet 25 mg PO DAILY #90 tabs 11/11/23 lisinopril 5 mg tablet 5 mg PO DAILY #90 tabs 11/11/23 tamsulosin 0.4 mg capsule 0.8 mg (2 x 0.4 mg) PO QPM #60 caps 11/17/23 Allergies Allergy/AdvReac Type Severity Reaction Status Date / Time No Known Drug Allergies Allergy Verified 11/27/23 09:13 Review of Systems Review of Systems Narrative: see HPI Patient History Social History Smoking Status: Never smoker Smoking Status: Never smoker alcohol intake frequency: 0-2 drinks per day Substance Use Type: does not use Exam Narrative Exam Narrative: GENERAL: Well-developed patient, in moderate distress due to left flank pain, standing over side of bed, writhing around. HEAD: Atraumatic. Normocephalic. EYES: Pupils equal round and reactive. Extraocular motions intact. No scleral icterus. No injection or drainage. ENT: Nose without bleeding, purulent drainage. Throat without erythema, tonsillar hypertrophy or exudate. Airway patent. NECK: Trachea midline. Non tender CARDIOVASCULAR: Regular rate and rhythm without murmurs, gallops, or rubs. RESPIRATORY: Clear to auscultation. Breath sounds equal bilaterally. No wheezes, rales, or rhonchi. GASTROINTESTINAL: Abdomen soft, non-tender, nondistended. EXTREMITIES: No edema or joint tenderness. BACK: Nontender without deformity or crepitance. No flank tenderness. NEURO: AOx3. Motor functions grossly nonfocal SKIN: No rash or erythema of visible areas Initial Vital Signs Initial Vital Signs: Vital Signs Pulse Rate 110 H 11/27/23 08:55 Pulse Oximetry 100 11/27/23 08:55 Course Orders Ordered: Discontinued Medications Hydromorphone HCl (Hydromorphone 1 Mg Inj) 1 mg IM NOW ONE Stop: 11/27/23 09:06 Last Admin: 11/27/23 09:10 Dose: 1 mg Documented By: GRETA Hydromorphone HCl (Hydromorphone 1 Mg Inj) 0.5 mg IV NOW ONE Stop: 11/27/23 09:30 Last Admin: 11/27/23 09:36 Dose: 0.5 mg Documented By: GRETA Ondansetron HCl (Ondansetron 4 Mg/2 Ml Inj) 4 mg IV NOW ONE Stop: 11/27/23 09:07 Last Admin: 11/27/23 09:36 Dose: 4 mg Documented By: GRETA Vital Signs Vital signs: Vital Signs - 8 hr 11/27/23 08:55 11/27/23 08:56 11/27/23 08:56 Temperature Pulse Rate 110 H 108 H Respiratory Rate Blood Pressure 150/96 H Pulse Oximetry 100 100 Oxygen Delivery Method 11/27/23 09:00 11/27/23 10:16 11/27/23 10:17 Temperature 98.8 F Pulse Rate 109 H 90 Respiratory Rate 18 Blood Pressure 150/96 H 144/92 H Pulse Oximetry 99 100 Oxygen Delivery Method Room Air 11/27/23 10:17 Temperature Pulse Rate 88 Respiratory Rate Blood Pressure Pulse Oximetry 99 Oxygen Delivery Method MDM - Abdominal Pain Lab Data Attestation: I reviewed the patient's lab results. 11/27/23 09:25 11/27/23 09:25 Labs: Lab Results 11/27/23 11/27/23 Range/Units 09:25 09:41 WBC 5.6 (4.5-11.0) X10^3/uL RBC 4.87 (4.5-5.9) X10^6/uL Hgb 14.9 (13.5-17.5) g/dL Hct 43.7 (41-53) % MCV 89.7 (80-100) fL MCH 30.6 (26-34) PG MCHC 34.1 (30-36) % RDW 13.5 (11.6-14.8) % Plt Count 318 (150-400) X10^3/uL Neut % (Auto) 62.8 (50-75) % Lymph % (Auto) 27.6 (25-40) % Brown % (Auto) 7.3 (3-14) % Eos % (Auto) 1.5 L (2-4) % Baso % (Auto) 0.8 (0-2) % Neut # (Auto) 3500 (2276-2416) /uL Lymph # (Auto) 1600 (8740-5259) /uL Brown # (Auto) 400 (0-900) /uL Eos # (Auto) 100 (0-450) /uL Baso # (Auto) 0 (0-100) /uL Sodium 135 L (137-145) mmol/L Potassium 4.2 (3.4-5.1) mmol/L Chloride 105 (98-107) mmol/L Carbon Dioxide 19 L (22-32) mmol/L BUN 15 (9-20) mg/dL Creatinine 0.80 (0.66-1.25) mg/dL Estimated GFR > 60 (>60) mL/min BUN/Creatinine Ratio 18.8 (6-22) Glucose 131 H (70-100) mg/dL Calcium 10.1 (8.4-10.2) mg/dL Total Bilirubin 1.1 (0.2-1.3) mg/dL AST 22 (17-59) IU/L ALT 16 (<50) IU/L Alkaline Phosphatase 46 (38-126) U/L Total Protein 7.3 (6.3-8.2) g/dL Albumin 4.5 (3.5-5.0) g/dL Globulin 2.8 (1.7-4.1) g/dL Albumin/Globulin Ratio 1.6 (1.0-2.8) Lipase 142 (23-300) U/L Urine RBC 30-100/hpf H (0-5/HPF) Urine WBC 0-1/hpf (0-5/HPF) Ur Squamous Epith Cells None seen (0-5/HPF) Urine Bacteria None seen (None) Ur Culture Indicated? Cult not indicated Vol Urine Centrifuged 10ml (spun) Point of care testing: Urine Dip Bedside Urine Glucose Negative Bedside Urine Bilirubin - Negative Bedside Urine Ketone - Negative Urine Specific Miracle 1.010 Bedside Urine Occult Blood +++ Bedside Urine pH 6.0 Bedside Urine Protein - Negative Bedside Urine Urobilinogen - Negative Bedside Urine Nitrite - Negative Bedside Urine Leukocytes - Negative Esterase Imaging Data CT scan - abdomen/pelvis: Radiologist's Impression: [address] [address] [address] Scan Report Signed Patient: Lui Juan MR#: [id number] : 1965 Acct:[id number] Age/Sex: 58 / M Date of Service: 11/27/23 Loc: ED Accession Number: [id number] Procedure: CT chest abd pel wo con Ordering Provider: Efren Lane MD PROCEDURE: CT CHEST ABD PEL WO CON INDICATIONS: Left flank pain TECHNIQUE: After the administration of oral contrast, 5 mm thick sections acquired from the lung apices to the symphysis pubis. 5 mm thick coronal and sagittal reformats acquired, with additional 7 mm coronal MIP reformats through the lungs. For radiation dose reduction, the following was used: automated exposure control, adjustment of mA and/or kV according to patient size. COMPARISON: CR, CHEST 1 VIEW, 12/02/2016, 15:12. [facility], CT, CT KIDNEY URETER BLADDER (KUB), 11/26/2022, 14:39. FINDINGS: Image quality: Diagnostic. CHEST: Lower Neck: No enlarged lymph nodes. Thyroid: No thyroid nodules which require sonographic follow up, per consensus guidelines. Axillae: No enlarged lymph nodes. Chest Wall: Unremarkable. Bones: Unremarkable. Lungs and Pleura: No pneumothorax or pleural effusions. No consolidation or suspicious nodules. Heart: Heart size is normal. No pericardial effusion. Thoracic Vessels: The aorta and pulmonary arteries demonstrate normal size. Mediastinum and Ashlyn: No enlarged lymph nodes. Esophagus: No wall thickening. Mild hiatal hernia. ABDOMEN: Liver: No solid mass. Gallbladder: Removed. Biliary ducts: No biliary dilation. Pancreas: No ductal dilation. Spleen: Size is within normal limits. Adrenal Glands: No adrenal nodules. Kidneys and Ureters: No solid mass. No complex renal cystic lesion which requires follow up. Bilateral calculi are present the greatest measuring 4 mm, as previously identified on prior exam. There is a slight prominence of the left renal collecting system. No stones are identified within the ureter. Stomach and Bowel: Normal colonic caliber, without significant wall thickening. Peritoneum: No abnormal intraperitoneal fluid. No free air. Ventral Wall: Fat containing ventral hernia. Abdominal Nodes: No retroperitoneal or mesenteric adenopathy by size criteria. Vessels: Aorta and inferior vena cava are normal in size. PELVIS: Pelvic Organs: Unremarkable. Bladder: Unremarkable. No bladder calculi. Pelvic Nodes: No enlarged lymph nodes. Miscellaneous: Fat containing inguinal hernias are seen. Bones: No aggressive osseous abnormality. IMPRESSION: Bilateral renal calculi. Slight prominence of the right renal collecting system without visualized stone. Recently passed stone cannot be definitively excluded. Dictated by: Nikole Garcia M.D. on 11/27/2023 at 10:34 Approved by: Nikole Garcia M.D. on 11/27/2023 at 10:44 MDM Narrative Medical decision making narrative: 58-year-old male with history of kidney stones, severe left kidney stone intermittent and now present and worse since last night, writhing in standing position unable to get comfortable. IM Dilaudid while attempting to get IV access to send labs. Pain little change after IM Dilaudid 1 mg dose, IV access, recent oral Toradol noted this morning, will avoid IV Toradol for now, we will give additional Dilaudid 0.5 mg IV for now. CT abdomen and pelvis ordered noncontrast. CT abdomen and pelvis shows bilateral renal calculi, slight prominence right renal collecting system without visualized stone, possibly recently passed stone. See radiology report Patient no longer writhing, does feel better, now comfortable appearing, possible recently passed stone. Discharged home Discharge Plan Departure Patient Disposition: Home Clinical Impression: Left flank pain, Bilateral kidney stones Instructions: DI for Kidney Stones Activity Restrictions/Additional Instructions: History of kidney stones, severe left-sided flank pain, initial difficulty with intramuscular and then IV medications controlling your pain, CT scanning was performed, it showed the presence of kidney stones on both sides, but at this time there were no kidney stones in the ureters on the right or the left. The right ureter with slightly dilated compared to the left, suggestive of possible passage of right renal stone. The your symptoms to be on the left side. You seemed to feel better. Possible recent passage of stone, versus some other process. Urinalysis showed no obvious infection at this time. Consider use of [id number] anti-inflammatory medications as needed for any recurrence of symptoms. Recheck for recurrence of symptoms with your regular doctor, or at this/nearest emergency department for any change worsening symptoms or any concerns prior Prescriptions: No Action metoprolol succinate 25 mg tablet extended release 24 hr 25 mg PO DAILY Qty: 90 0RF Hold Instructions: Patient is not currently taking/has low bp metformin 500 mg tablet 1,000 mg PO BID Qty: 360 1RF hydrochlorothiazide 25 mg tablet 25 mg PO DAILY Qty: 90 0RF lisinopril 5 mg tablet 5 mg PO DAILY MDD 5mg Qty: 90 0RF tamsulosin 0.4 mg capsule 0.8 mg PO QPM Qty: 60 6RF oxycodone 10 mg tablet See Rx Instructions PO BID MDD 20mg PRN (Reason: pain (scale score 7-10)) Qty: 28 0RF Hold Instructions: insurance denied Rx Instructions: take 1-2 only as needed per day for renal colic. Must last 28 days. Ozempic 0.25 mg or 0.5 mg (2 mg/3 mL) pen injector 0.5 mg SUBCUT QWEEK Qty: 3 1RF Referrals: Cheyenne Cadet PA-C [Primary Care Provider] - Stand Alone Forms: Patient Portal/API
--- NOTE | 2023-11-27 08:54 | DI.CT.S_ITS ---
PROCEDURE: CT CHEST ABD PEL WO CON INDICATIONS: Left flank pain TECHNIQUE: After the administration of oral contrast, 5 mm thick sections acquired from the lung apices to the symphysis pubis. 5 mm thick coronal and sagittal reformats acquired, with additional 7 mm coronal MIP reformats through the lungs. For radiation dose reduction, the following was used: automated exposure control, adjustment of mA and/or kV according to patient size. COMPARISON: CR, CHEST 1 VIEW, 12/02/2016, 15:12. [facility], CT, CT KIDNEY URETER BLADDER (KUB), 11/26/2022, 14:39. FINDINGS: Image quality: Diagnostic. CHEST: Lower Neck: No enlarged lymph nodes. Thyroid: No thyroid nodules which require sonographic follow up, per consensus guidelines. Axillae: No enlarged lymph nodes. Chest Wall: Unremarkable. Bones: Unremarkable. Lungs and Pleura: No pneumothorax or pleural effusions. No consolidation or suspicious nodules. Heart: Heart size is normal. No pericardial effusion. Thoracic Vessels: The aorta and pulmonary arteries demonstrate normal size. Mediastinum and Ashlyn: No enlarged lymph nodes. Esophagus: No wall thickening. Mild hiatal hernia. ABDOMEN: Liver: No solid mass. Gallbladder: Removed. Biliary ducts: No biliary dilation. Pancreas: No ductal dilation. Spleen: Size is within normal limits. Adrenal Glands: No adrenal nodules. Kidneys and Ureters: No solid mass. No complex renal cystic lesion which requires follow up. Bilateral calculi are present the greatest measuring 4 mm, as previously identified on prior exam. There is a slight prominence of the left renal collecting system. No stones are identified within the ureter. Stomach and Bowel: Normal colonic caliber, without significant wall thickening. Peritoneum: No abnormal intraperitoneal fluid. No free air. Ventral Wall: Fat containing ventral hernia. Abdominal Nodes: No retroperitoneal or mesenteric adenopathy by size criteria. Vessels: Aorta and inferior vena cava are normal in size. PELVIS: Pelvic Organs: Unremarkable. Bladder: Unremarkable. No bladder calculi. Pelvic Nodes: No enlarged lymph nodes. Miscellaneous: Fat containing inguinal hernias are seen. Bones: No aggressive osseous abnormality. IMPRESSION: Bilateral renal calculi. Slight prominence of the right renal collecting system without visualized stone. Recently passed stone cannot be definitively excluded. Dictated by: Nikole Garcia M.D. on 11/27/2023 at 10:34 Approved by: Nikole Garcia M.D. on 11/27/2023 at 10:44
[2023-11-27 08:55] VITALS: PULSE 110; O2SAT 100
[2023-11-27 08:56] VITALS: BP 150/96; PULSE 108; O2SAT 100
[2023-11-27 09:00] VITALS: BP 150/96; PULSE 109; RESP 18; TEMP 37.1; O2SAT 99; BMI 26.6
[2023-11-27] MEDS: HYDROMORPHONE 1 MG INJ IM (09:10)
[2023-11-27] MEDS: ONDANSETRON 4 MG/2 ML INJ IV (09:36)
[2023-11-27] MEDS: HYDROMORPHONE 1 MG INJ 0.5 MG IV (09:36)
[2023-11-27 09:44] LABS: Add Manual Diff / Slide Review NO; Basophils Absolute Auto 0 /uL (0-100); Basophils Percent Auto 0.8 % (0-2); Eosinophils Absolute Auto 100 /uL (0-450); Eosinophils Percent Auto 1.5 % (2-4); Hematocrit 43.7 % (41-53); Hemoglobin 14.9 g/dL (13.5-17.5); Lymphocytes Absolute Auto 1600 /uL (1100-4500); Lymphocytes Percent Auto 27.6 % (25-40); Mean Corpuscular HGB Conc 34.1 % (30-36); Mean Corpuscular Hemoglobin 30.6 PG (26-34); Mean Corpuscular Volume 89.7 fL (80-100); Monocytes Absolute Auto 400 /uL (0-900); Monocytes Percent Auto 7.3 % (3-14); Neutrophils Absolute Auto 3500 /uL (1500-7000); Neutrophils Percent Auto 62.8 % (50-75); Platelet Count 318 X10^3/uL (150-400); Red Blood Cell Count 4.87 X10^6/uL (4.5-5.9); Red Cell Distribution Width 13.5 % (11.6-14.8); White Blood Cell Count 5.6 X10^3/uL (4.5-11.0)
[2023-11-27 09:50] LABS: Alanine Aminotransferase 16 IU/L (<50); Albumin 4.5 g/dL (3.5-5.0); Albumin Globulin Ratio 1.6 (1.0-2.8); Alkaline Phosphatase 46 U/L (38-126); Aspartate Aminotransferase 22 IU/L (17-59); BUN Creatinine Ratio 18.8 (6-22); Bilirubin Total 1.1 mg/dL (0.2-1.3); Blood Urea Nitrogen 15 mg/dL (9-20); Calcium 10.1 mg/dL (8.4-10.2); Carbon Dioxide 19 mmol/L (22-32); Chloride 105 mmol/L (98-107); Estimated Glomerular Filt Rate > 60 mL/min (>60); Globulin 2.8 g/dL (1.7-4.1); Glucose 131 mg/dL (70-100); HEMOLYSIS < 15 (0-50); Lipase 142 U/L (23-300); Potassium 4.2 mmol/L (3.4-5.1); Sodium 135 mmol/L (137-145); Total Protein 7.3 g/dL (6.3-8.2)
[2023-11-27 10:05] LABS: Bacteria Urine None Seen; Culture Indicated Urine Cult Not Indicated; RBC Urine 30-100/HPF (0-5/HPF); Squamous Epithelial Cell Urine None Seen (0-5/HPF); Urine Volume 10mL (spun); WBC Urine 0-1/HPF (0-5/HPF)
[2023-11-27 10:16] VITALS: PULSE 90; O2SAT 100
[2023-11-27 10:17] VITALS: BP 144/92; PULSE 88; O2SAT 99
== END 2023-11-27 12:20 | disposition home or self-care (01) ==
PROVIDERS: Emergency Provider Emergency Medicine; PCP Physician Assistant
DX: N20.0 Calculus of kidney (principal); R10.9 Unspecified abdominal pain; R11.0 Nausea
CPT/HCPCS: 36415; 71250; 74176; 80053; 81003; 81015; 83690; 85025; 96372; 96374; 96375; 99284; J1171; J2405